=== PATIENT | female | born 1955 | race African-American/Black ===

== ENCOUNTER 2018-01-20 19:02 | Inpatient (IN) | payer OTHER ==
[~2018-01-20] VITALS: Ht 160 cm; Wt 102.5 kg
[~2018-01-20 19:02] MED LIST: CARV25TA PO; COLC0.6C3 PO; DOCU-141 PO; FURO-144 PO; GLIP5TAB13 PO; ISOS30TA PO; PANT40TA2 PO; SIME80TA PO; VALS80TA31 PO
--- NOTE | 2018-01-20 19:19 | NUR ---
URINE SAMPLE COLLECTED AND SENT TO LAB.
--- NOTE | 2018-01-20 19:20 | NUR ---
TO BED 9 BIB DAUGHTER C/O INTERMITTENT CHEST PAIN WITH SOB, ABDOMINAL DISTENSION SINCE YESTERDAY. PT STATES "IT FEEL LIKE THERE A BAND IN MY ABDOMEN. LUNG SOUNDS DEMINISHED BILATERALLY ON AUSCULTATION. RA O2 SAT 100%. SKIN WARM, NONDIAPHORETIC. ER MD AT BEDSIDE TO EVAL PTW ITH ORDERS RECEIVED. WILL CARRY OUT ORDERS. RT PAGED TO PLACE PT ON CPAP.
--- NOTE | 2018-01-20 19:24 | NUR ---
RT AT BESIDE PLACE PT ON CPAP RATE-5, FIO2-30%. WILL CONTINUE TO MONITOR PT CLOSELY.
--- NOTE | 2018-01-20 19:25 | NUR ---
STARTED SL 18G TO R HAND, BLOOD DRAWN AND SENT TO LAB.
[2018-01-20] MEDS ORDERED: ASPIRIN 325 MG TABLET PO ONE (19:30)
[2018-01-20] MEDS ORDERED: NITROGLYCERIN PACKET 1 GM PACKET TD ONE (19:30)
[2018-01-20 19:35] LABS: BASOPHILS # (AUTO) 0.2 /CMM (0.0-0.2); BASOPHILS % (AUTO) 2.9 % (0.0-2.0); EOSINOPHILS % (AUTO) 2.6 % (0.0-6.0); HEMATOCRIT 40 % (33-45); HEMOGLOBIN 13.1 g/dL (11.5-14.8); LYMPHOCYTES # (AUTO) 1.3 /CMM (0.8-4.8); LYMPHOCYTES % (AUTO) 23.3 % (20.0-44.0); MEAN CORPUSCULAR HEMOGLOBIN 28 PG (26.0-33.0); MEAN CORPUSCULAR HGB CONC 33 g/dl (31.0-36.0); MEAN CORPUSCULAR VOLUME 84 fL (82-100); MONOCYTES # (AUTO) 0.3 /CMM (0.1-1.30); MONOCYTES % (AUTO) 5.9 % (2.0-12.0); NEUTROPHILS # (AUTO) 3.6 /CMM (1.8-8.9); NEUTROPHILS % (AUTO) 65.3 % (43.0-81.0); PLATELET COUNT (AUTO) 221 /CMM (150-450); RED BLOOD CELL COUNT(AUTO) 4.77 MIL/uL (4.0-5.2); WHITE BLOOD COUNT (AUTO) 5.5 K/uL (4.3-11.0)
[2018-01-20] MEDS ORDERED: NITROGLYCERIN PACKET 1 GM PACKET ONE (19:39)
[2018-01-20] MEDS ORDERED: ASPIRIN 325 MG TABLET ONE (19:39)
[2018-01-20 19:42] VITALS: BP 146/90
--- NOTE | 2018-01-20 19:44 | NUR ---
CXR DONE. PT MEDICATED ORDERED. PT TOLERATING CURRENT CPAP SETTINGS AT THIS TIME. WILL CONTINUE TO MONITOR PT CLOSELY.
[2018-01-20 20:10] LABS: CALCIUM, SERUM 9.7 mg/dL (8.5-10.1); CARBON DIOXIDE 30 mmol/L (21-32); CHLORIDE 104 mmol/L (98-107); CREATININE 1.7 mg/dL (0.6-1.3); GLUCOSE 173 mg/dL (74-106); POTASSIUM 4.1 mmol/L (3.5-5.1); SODIUM SERUM 139 mmol/L (136-145); UREA NITROGEN, BLOOD 31 mg/dL (7-18)
[2018-01-20 20:11] LABS: B-TYPE NATRIURETIC PEPTIDE 7987 PG/ML (0-125)
[2018-01-20 20:21] LABS: INR 1.16 (0.85-1.15)
[2018-01-20 20:29] LABS: TROPONIN I < 0.017 ng/mL (0.00-0.056)
[2018-01-20] MEDS ORDERED: FUROSEMIDE 40 MG/4 ML VIAL IV ONE (21:00)
[2018-01-20] MEDS ORDERED: FUROSEMIDE 40 MG/4 ML VIAL ONE (21:10)
--- NOTE | 2018-01-20 21:13 | NUR ---
PLACE PT ON O2@2L/NC. CPAP DC'D [ER ER ORDER. WILL CONTINUE TO MONITOR PT CLOSELY.
--- NOTE | 2018-01-20 21:53 | NUR ---
REPORT CALLED TO TELE 1 CINDI PAVON. PENDING HOSPITAL ADMISSION.
--- NOTE | 2018-01-20 21:54 | NUR ---
PAGED DR. DENNY THROUGH [facility] OIL TRUCK DRIVER NATALYA
--- NOTE | 2018-01-20 22:08 | NUR ---
PAGED DR. DENNY FOR ADMIT
--- NOTE | 2018-01-20 22:09 | NUR ---
ER TALKING TO DR. DENNY REGARDING PT ADMISSION.
--- NOTE | 2018-01-20 23:00 | NUR ---
SPRING ASSEMBLER SUPERVISOR NOTE PATIENT IS AOX3, SPEECH CLEAR, ON 2L O2 VIA NC, DENIES ANY CARDIAC OR RESPIRATORY DISTRESS, DENIES CHEST PAIN, ABDOMEN DISTENDED, ON TELE SR, PT IS AMBULATORY WITH WALKER, BLE EDEMA, RIGHT HAND #18G PATENT FLUSHING WELL, SITE CDI, SAFETY MAINTAINED AT ALL TIMES, BED IN LOW LOCKED POSITION, EDUCATED PRINTED CIRCUIT BOARD PCB DRAFTSMAN LIGHT USE, WITHIN REACH, WILL CONTINUE TO MONITOR FOR ANY CHANGES IN CONDITION.
[2018-01-20 23:10] VITALS: BP 145/89
[2018-01-20] MEDS ORDERED: *INSULIN REGULAR(HUMULIN R)HUM 100 UNIT/ML VIAL SQ PRN (23:30)
[2018-01-20] MEDS ORDERED: INSULIN REGULAR, HUMAN 100 UNIT/ML 3 ML VIAL SQ PRN (23:30)
[2018-01-20] MEDS ORDERED: ZOLPIDEM TARTRATE 10 MG TABLET PO PRN (23:30)
[2018-01-20] MEDS ORDERED: DEXTROSE 50%-WATER 50 ML DISP.SYRIN IV PRN (23:30)
[2018-01-20] MEDS: ACETAMINOPHEN 325 MG TABLET PO PRN (23:53)
[2018-01-21] VITALS (7 sets, daily range): BP systolic 106–145; BP diastolic 64–91
[2018-01-21] MEDS ORDERED: ENOXAPARIN SODIUM 40 MG/0.4 ML DISP.SYRIN SQ ONE
--- NOTE | 2018-01-21 04:19 | NUR ---
INVESTIGATOR CASH SHORTAGE NOTE DR DENNY INFORMED THAT PATIENT HAD TWO EPISODES OF VTACH ONE LASTING 7 BEATS AND ANOTHER LASTING 6 BEATS, WITH NO NEW ORDERS, PT RESTING COMFORTABLY IN BED, 2L O2 VIA NC, V/S STABLE, DENIES ANY CARDIAC DISTRESS, WILL CONTINUE TO MONITOR.
[2018-01-21 07:33] LABS: BASOPHILS % (AUTO) 0.4 % (0.0-2.0); EOSINOPHILS % (AUTO) 3.6 % (0.0-6.0); HEMATOCRIT 37 % (33-45); HEMOGLOBIN 11.7 g/dL (11.5-14.8); LYMPHOCYTES # (AUTO) 1.3 /CMM (0.8-4.8); LYMPHOCYTES % (AUTO) 24.9 % (20.0-44.0); MEAN CORPUSCULAR HEMOGLOBIN 28 PG (26.0-33.0); MEAN CORPUSCULAR HGB CONC 32 g/dl (31.0-36.0); MEAN CORPUSCULAR VOLUME 88 fL (82-100); MONOCYTES # (AUTO) 0.6 /CMM (0.1-1.30); MONOCYTES % (AUTO) 11.2 % (2.0-12.0); NEUTROPHILS % (AUTO) 59.9 % (43.0-81.0); PLATELET COUNT (AUTO) 189 /CMM (150-450); RDW COEFFICIENT OF VARIATION 16.3 (11.5-15.0); RED BLOOD CELL COUNT(AUTO) 4.17 MIL/uL (4.0-5.2); WHITE BLOOD COUNT (AUTO) 5.1 K/uL (4.3-11.0)
[2018-01-21 07:41] LABS: CREATININE 1.6 mg/dL (0.6-1.3); POTASSIUM 3.5 mmol/L (3.5-5.1)
[2018-01-21 07:47] LABS: CALCIUM, SERUM 9.5 mg/dL (8.5-10.1)
[2018-01-21] MEDS ORDERED: COLCHICINE 0.6 MG TABLET PO PRN (08:00)
[2018-01-21] MEDS: BLOOD SUGAR DIAGNOSTIC 1 EACH STRIP VI SCH ×4 (08:00→21:49)
[2018-01-21] MEDS ORDERED: SIMETHICONE 80 MG TAB.CHEW PO PRN (08:00)
--- NOTE | 2018-01-21 08:00 | NUR ---
CHERIE RN NOTE RECEIVED PATIENT IN BED.PATIENT IS AOX4, SPEECH CLEAR, ON 2L O2 VIA NC, PATIENT COMPLAINS OF SOB WHEN LAYING ON HER BACK, DENIES ANY RESPIRATORY DISTRESS, DENIES CHEST PAIN AT THIS TIME, ABDOMEN DISTENDED, ON TELE SR WITH BBB, PT IS AMBULATORY WITH WALKER, BLE EDEMA, RIGHT HAND #18G IV LINE IS PATENT FLUSHING WELL, SITE CDI, SAFETY MAINTAINED AT ALL TIMES, BED IN LOW LOCKED POSITION, EDUCATED ELECTRONIC SALES AND SERVICE TECHNICIAN LIGHT USE PROVIDED, WITHIN REACH, WILL CONTINUE TO MONITOR FOR ANY CHANGES IN CONDITION.
[2018-01-21] MEDS ORDERED: FUROSEMIDE 40 MG TABLET PO SCH (09:00)
[2018-01-21] MEDS ORDERED: PANTOPRAZOLE 40 MG TABLET.DR PO SCH (09:00)
[2018-01-21] MEDS ORDERED: FUROSEMIDE 40 MG/4 ML VIAL IV SCH (09:00)
[2018-01-21] MEDS: DOCUSATE SODIUM 100 MG CAPSULE PO SCH (09:52)
[2018-01-21] MEDS: ACETAMINOPHEN 325 MG TABLET PO PRN (09:53)
[2018-01-21] MEDS: glipiZIDE 5 MG TABLET PO SCH (09:53)
[2018-01-21] MEDS: VALSARTAN 80 MG TABLET PO SCH (09:57)
[2018-01-21] MEDS: CARVEDILOL 12.5 MG TABLET PO SCH ×2 (09:57→21:49)
[2018-01-21] MEDS: ISOSORBIDE MONONITRATE (30MG) 30 MG TAB.SR.24H PO SCH (09:58)
[2018-01-21] MEDS: SPIRONOLACTONE 25 MG TABLET PO SCH (11:07)
--- NOTE | 2018-01-21 11:07 | NUR ---
INITIAL ECHO SHOWED EF~15% W/ MOD-SEVERE MR, SEVERE TR WITH MOD PULM HTN. INFORMED CHARGE NURSE (TOMER) AND DR. HEAD OF PRELIMINARY RESULTS
[2018-01-21] MEDS: FUROSEMIDE 40 MG/4 ML VIAL IV SCH (17:39)
--- NOTE | 2018-01-21 19:00 | NUR ---
CHERIE RN NOTES RECEIVED PATIENT IN BED.PATIENT IS A/OX4, SPEECH CLEAR, ON 2L O2 VIA NC, NO COMPLAIN OF PAIN , DENIES ANY RESPIRATORY DISTRESS AT THIS TIME , DENIES CHEST PAIN AT THIS TIME, ABDOMEN DISTENDED, ON TELE SR WITH BBB, PT IS AMBULATORY WITH WALKER, BLE EDEMA, RIGHT HAND #18G IV LINE IS PATENT FLUSHING WELL, SITE CDI, SAFETY MAINTAINED AT ALL TIMES, BED IN LOW LOCKED POSITION, EDUCATED VICE PRESIDENT BIOSTATISTICS LIGHT USE PROVIDED, WITHIN REACH,PATIENT CARE WILL BE ENDORSED TO PM NURSE FOR SENIOR SUPPORT ENGINEER .
--- NOTE | 2018-01-21 19:20 | NUR ---
HISTOLOGY SUPERVISOR NOTE PATIENT IS AOX3, SPEECH CLEAR, ON ROOM AIR, DENIES ANY CARDIAC OR RESPIRATORY DISTRESS, NO CHEST PAIN, ABDOMEN DISTENDED, ON TELE SR WITH BBB, PT IS AMBULATORY WITH WALKER, BRP, BLE EDEMA, RIGHT HAND #18G SL PATENT FLUSHING WELL, SITE CDI, SKIN KEPT CLEAN AND DRY, SAFETY MAINTAINED AT ALL TIMES, BED IN LOW LOCKED POSITION, CALL LIGHT WITHIN REACH, WILL CONTINUE TO MONITOR FOR ANY CHANGES IN CONDITION.
[2018-01-21] MEDS: PANTOPRAZOLE 40 MG TABLET.DR PO SCH (21:48)
[2018-01-21] MEDS ORDERED: ENOXAPARIN SODIUM 40 MG/0.4 ML DISP.SYRIN SQ SCH (22:00)
[2018-01-22] VITALS: BP 126/70
[2018-01-22] MEDS: FUROSEMIDE 40 MG/4 ML VIAL IV SCH ×3 (00:16→16:21)
[2018-01-22] MEDS: ACETAMINOPHEN 325 MG TABLET PO PRN (01:14)
[2018-01-22 04:00] VITALS: BP 135/79
[2018-01-22 06:26] LABS: BASOPHILS % (AUTO) 0.1 % (0.0-2.0); EOSINOPHILS % (AUTO) 3.1 % (0.0-6.0); HEMATOCRIT 37 % (33-45); HEMOGLOBIN 11.9 g/dL (11.5-14.8); LYMPHOCYTES # (AUTO) 1.1 /CMM (0.8-4.8); LYMPHOCYTES % (AUTO) 21.3 % (20.0-44.0); MEAN CORPUSCULAR HEMOGLOBIN 28 PG (26.0-33.0); MEAN CORPUSCULAR HGB CONC 32 g/dl (31.0-36.0); MEAN CORPUSCULAR VOLUME 88 fL (82-100); MONOCYTES # (AUTO) 0.4 /CMM (0.1-1.30); MONOCYTES % (AUTO) 7.8 % (2.0-12.0); NEUTROPHILS # (AUTO) 3.5 /CMM (1.8-8.9); NEUTROPHILS % (AUTO) 67.7 % (43.0-81.0); PLATELET COUNT (AUTO) 188 /CMM (150-450); RDW COEFFICIENT OF VARIATION 16.6 (11.5-15.0); RED BLOOD CELL COUNT(AUTO) 4.23 MIL/uL (4.0-5.2); WHITE BLOOD COUNT (AUTO) 5.2 K/uL (4.3-11.0)
[2018-01-22 06:38] LABS: CALCIUM, SERUM 9.2 mg/dL (8.5-10.1); CREATININE 1.7 mg/dL (0.6-1.3); POTASSIUM 3.8 mmol/L (3.5-5.1)
--- NOTE | 2018-01-22 07:45 | NUR ---
COMMISSARY AGENT NOTE: RECEIVED PATIENT IN BED, AWAKE, ALERT AND ABLE TO MAKE HER NEEDS KNOWN. RESPIRATION IS EVEN AND UNLABORED SATURATING 97% IN ROOM AIR. DENIED ANY PAIN. HOB ELEVATED. AFEBRILE. BED LOCKED AT ALL TIMES. (L) HAND IV SITE NOTED PATENT AND INTACT. CALL LIGHT WITHIN REACH. ON MEN'S BASKETBALL COACH, SR HR= 70. NEEDS ANTICIPATED.
[2018-01-22] MEDS: BLOOD SUGAR DIAGNOSTIC 1 EACH STRIP VI SCH ×3 (07:52→17:09)
[2018-01-22 08:00] VITALS: BP 136/92
[2018-01-22] MEDS: PANTOPRAZOLE 40 MG TABLET.DR PO SCH (08:46)
[2018-01-22] MEDS: VALSARTAN 80 MG TABLET PO SCH (08:46)
[2018-01-22] MEDS: glipiZIDE 5 MG TABLET PO SCH (08:46)
[2018-01-22] MEDS: SPIRONOLACTONE 25 MG TABLET PO SCH (08:47)
[2018-01-22] MEDS: DOCUSATE SODIUM 100 MG CAPSULE PO SCH (08:47)
[2018-01-22] MEDS: ISOSORBIDE MONONITRATE (30MG) 30 MG TAB.SR.24H PO SCH (08:48)
[2018-01-22] MEDS: CARVEDILOL 12.5 MG TABLET PO SCH (08:48)
[2018-01-22] MEDS ORDERED: SPIR25TA PO (09:33)
[2018-01-22] MEDS ORDERED: VALS80TA31 PO (09:33)
[2018-01-22 16:00] VITALS: BP 110/68
--- NOTE | 2018-01-22 19:00 | NUR ---
MS RN NOTE: PATIENT WAS GIVEN DISCHARGE INSTRUCTIONS AND EXIT CARE WAS DONE. PATIENT RECEIVED THE DISCHARGE PACKET WITH HER INCLUDING THE PRESCRIPTION FROM DR. DENNY. PATIENT HAD NO QUESTIONS REGARDING HER DISCHARGE FOR TONIGHT. BELONGING LIST WAS SIGNED. MARITZA, DAUGHTER IS ON THE WAY TO PICK-UP THE PATIENT.
--- NOTE | 2018-01-22 19:30 | NUR ---
MS RN NOTE: PATIENT WAS DISCHARGED TO HOME AND WAS PICKED-UP BY HER DAUGHTER, MARITZA VIA PRIVATE CAR. PATIENT BROUGHT ALL HER BELONGINGS AND IV LINE ON THE (L) HAND WAS REMOVED. COVERED WITH DRY DRESSING AND SECURED WITH TAPE. PATIENT WAS ESCORTED TO THE MAIN LOBBY VIA WHEELCHAIR ACCOMPANIED BY A LICENSED NURSE.
[2018-01-23] MEDS ORDERED: VALSARTAN 80 MG TABLET PO SCH (09:00)
== END 2018-01-22 19:35 | disposition home or self-care (01) | DRG 194 ==
LOC: ER 19:03 → TELE-TD 22:19 → TELE1 23:18 → MEDSG1 01-22 09:29
PROVIDERS: ADMIT Internal Medicine; ATTEND Internal Medicine
DX: I11.0 Hypertensive heart disease with heart failure (principal); E11.22 Type 2 diabetes mellitus with diabetic chronic kidney disease; I42.0 Dilated cardiomyopathy; I08.1 Rheumatic disorders of both mitral and tricuspid valves; E78.5 Hyperlipidemia, unspecified; L40.9 Psoriasis, unspecified; Z98.890 Other specified postprocedural states; Z79.84 Long term (current) use of oral hypoglycemic drugs; Z79.899 Other long term (current) drug therapy; K59.00 Constipation, unspecified; M10.9 Gout, unspecified; F31.9 Bipolar disorder, unspecified; I50.23 Acute on chronic systolic (congestive) heart failure; I13.0 Hypertensive heart and chronic kidney disease with heart failure and stage 1 through stage 4 chronic kidney disease, or unspecified chronic kidney disease; K80.20 Calculus of gallbladder without cholecystitis without obstruction; N18.3 Chronic kidney disease, stage 3 (moderate); Z95.810 Presence of automatic (implantable) cardiac defibrillator; I27.20 Pulmonary hypertension, unspecified; D21.9 Benign neoplasm of connective and other soft tissue, unspecified
CPT/HCPCS: 36415; 71045-TC; 80048-TC; 82962-TC; 83880; 84484-TC; 85025-TC; 85730-TC; 87081-TC; 93307-TC; A4606; J1650; J1815; J1940; Z7610

== ENCOUNTER 2019-02-17 15:56 | Emergency (ER) | payer OTHER ==
[~2019-02-17] VITALS: Ht 154.9 cm; Wt 109.3 kg
[~2019-02-17 15:56] MED LIST changes: +SPIR25TA PO
--- NOTE | 2019-02-17 15:58 | NUR ---
[id number], FROM HOME, C/O SOB x 3 DAYS Hx CHF, TO ER BED 9, HOOKED TO MONITOR, CHANGED TO GOWN, PROVIDED W WARM BLANKET, AWAITING MD MCGUIRE. Addendum: 02/17/19 at 1857 by LAURI [id number], FROM HOME, C/O SOB x 3 DAYS Hx CHF, TO ER BED 9, HOOKED TO MONITOR, CHANGED TO GOWN, PROVIDED W WARM BLANKET, PATIENT AOx3, ON 2LPM O2 VIA NC AT 97% O2 SATURATION, HOB KEPT ELEVATED, AWAITING MD MCGUIRE.
--- NOTE | 2019-02-17 16:02 | NUR ---
DR LOPEZ AT BEDSIDE
--- NOTE | 2019-02-17 16:11 | NUR ---
GAVE MOVESHEET TO ADMITTING
[2019-02-17] MEDS ORDERED: ASPI-1152 PO (16:14)
[2019-02-17] MEDS ORDERED: METO2.5T2 PO (16:14)
[2019-02-17] MEDS ORDERED: BISA5TAB10 PO (16:14)
[2019-02-17] MEDS ORDERED: FURO-144 PO (16:14)
[2019-02-17] MEDS ORDERED: VALS80TA2 PO (16:14)
[2019-02-17] MEDS ORDERED: ERGO500014 PO (16:14)
[2019-02-17] MEDS ORDERED: FURO-145 PO (16:14)
[2019-02-17] MEDS ORDERED: CLON0.3P TD (16:14)
[2019-02-17] MEDS ORDERED: EMPA10TA PO (16:14)
[2019-02-17] MEDS ORDERED: ATOR10TA PO (16:14)
[2019-02-17] MEDS ORDERED: SPIR25TA PO (16:15)
[2019-02-17] MEDS ORDERED: FUROSEMIDE 40 MG/4 ML VIAL ONE (16:21)
[2019-02-17 16:28] LABS: BASOPHILS # (AUTO) 0.1 /CMM (0.0-0.2); BASOPHILS % (AUTO) 1.7 % (0.0-2.0); EOSINOPHILS % (AUTO) 1.2 % (0.0-6.0); HEMATOCRIT 44 % (33-45); HEMOGLOBIN 14.2 g/dL (11.5-14.8); MEAN CORPUSCULAR HGB CONC 32 g/dl (31.0-36.0); MEAN CORPUSCULAR VOLUME 92 fL (82-100); MONOCYTES # (AUTO) 0.6 /CMM (0.1-1.30); MONOCYTES % (AUTO) 9.5 % (2.0-12.0); NEUTROPHILS # (AUTO) 4.3 /CMM (1.8-8.9); NEUTROPHILS % (AUTO) 70.6 % (43.0-81.0); PLATELET COUNT (AUTO) 207 /CMM (150-450); RED BLOOD CELL COUNT(AUTO) 4.77 MIL/uL (4.0-5.2); WHITE BLOOD COUNT (AUTO) 6.1 K/uL (4.3-11.0)
[2019-02-17] MEDS ORDERED: FUROSEMIDE 40 MG/4 ML VIAL IV ONE (16:30)
[2019-02-17 16:34] LABS: CALCIUM, SERUM 9.5 mg/dL (8.5-10.1); CARBON DIOXIDE 23 mmol/L (21-32); CHLORIDE 106 mmol/L (98-107); CREATININE 1.8 mg/dL (0.6-1.3); GLUCOSE 142 mg/dL (74-106); POTASSIUM 4.5 mmol/L (3.5-5.1); SODIUM SERUM 141 mmol/L (136-145); UREA NITROGEN, BLOOD 36 mg/dL (7-18)
[2019-02-17 16:46] LABS: ALANINE AMINOTRANSFERASE 13 U/L (12-78); ALBUMIN 3.2 g/dL (3.4-5.0); ALKALINE PHOSPHATASE 134 U/L (46-116); ASPARTATE AMINOTRANSFERASE 15 U/L (15-37); B-TYPE NATRIURETIC PEPTIDE 7272 PG/ML (0-125); BILIRUBIN,DIRECT 0.4 mg/dL (0.0-0.2); TOTAL PROTEIN, SERUM 7.8 g/dL (6.4-8.2)
--- NOTE | 2019-02-17 17:24 | NUR ---
LUIS- DAUGHTER REQUESTS UPDATE OF TRANSFER INFO WHEN AVAILABLE Addendum: 02/17/19 at 1725 by KIM LUIS [phone]
--- NOTE | 2019-02-17 17:35 | NUR ---
PER SUPA CLOCK AND WATCH HANDS MOUNTER TJ [phone] PT WILL GO TO [facility], TRANSPORT INFO AND ROOM ASSIGNMENT PENDING
--- NOTE | 2019-02-17 18:18 | NUR ---
CALL FROM SUPA SPENCER MGR, ACCEPTED BY DR ARCHULETA AT [facility].. REPORT TO BE CALLED AFTER SHIFT CHANGE AT [phone], [facility] ETA 90 MINUTES
--- NOTE | 2019-02-17 19:20 | NUR ---
REPORT GIVEN TO BRENDA PUENTE FOR [facility]
--- NOTE | 2019-02-17 19:45 | NUR ---
REPORT GIVEN TO CINDI OLSEN AT [facility] FOR [facility]
--- NOTE | 2019-02-17 22:20 | NUR ---
[facility] ETA 10 MINUTES
[2019-02-17 22:59] VITALS: BP 124/96
== END 2019-02-17 23:14 | disposition short-term general hospital (02) ==
LOC: ER 16:02
DX: I11.0 Hypertensive heart disease with heart failure (principal); I50.9 Heart failure, unspecified; J45.909 Unspecified asthma, uncomplicated; E11.9 Type 2 diabetes mellitus without complications; L40.9 Psoriasis, unspecified; R06.00 Dyspnea, unspecified; E66.9 Obesity, unspecified; Z68.42 Body mass index [BMI] 45.0-49.9, adult; Z95.0 Presence of cardiac pacemaker; Z98.890 Other specified postprocedural states; Z98.51 Tubal ligation status; Z79.82 Long term (current) use of aspirin
CPT/HCPCS: 36415; 51702; 71045; 80048; 80076; 83605; 83880; 84484; 85025; 85730; 87040 ×2; 87081; 93005; 96374; 99285; J1940

== ENCOUNTER 2019-03-28 22:55 | Emergency (ER) | payer OTHER ==
[~2019-03-28] VITALS: Ht 154.9 cm; Wt 98.9 kg
[~2019-03-28 22:55] MED LIST changes: +ASPI-1152 PO; +ATOR10TA PO; +BISA5TAB10 PO; +CLON0.3P TD; -COLC0.6C3 PO; -DOCU-141 PO; +EMPA10TA PO; +ERGO500014 PO; +FURO-145 PO; -GLIP5TAB13 PO; +METO2.5T2 PO; +VALS80TA2 PO; -VALS80TA31 PO
[2019-03-28 23:23] LABS: BASOPHILS # (AUTO) 0.1 /CMM (0.0-0.2); BASOPHILS % (AUTO) 1.5 % (0.0-2.0); EOSINOPHILS % (AUTO) 4.6 % (0.0-6.0); HEMATOCRIT 44 % (33-45); HEMOGLOBIN 14.3 g/dL (11.5-14.8); LYMPHOCYTES # (AUTO) 1.2 /CMM (0.8-4.8); LYMPHOCYTES % (AUTO) 20.6 % (20.0-44.0); MEAN CORPUSCULAR HGB CONC 33 g/dl (31.0-36.0); MEAN CORPUSCULAR VOLUME 91 fL (82-100); MONOCYTES # (AUTO) 0.7 /CMM (0.1-1.30); MONOCYTES % (AUTO) 12.7 % (2.0-12.0); NEUTROPHILS # (AUTO) 3.4 /CMM (1.8-8.9); NEUTROPHILS % (AUTO) 60.6 % (43.0-81.0); PLATELET COUNT (AUTO) 161 /CMM (150-450); RED BLOOD CELL COUNT(AUTO) 4.77 MIL/uL (4.0-5.2); WHITE BLOOD COUNT (AUTO) 5.7 K/uL (4.3-11.0)
[2019-03-28 23:33] LABS: CALCIUM, SERUM 9.4 mg/dL (8.5-10.1); CARBON DIOXIDE 27 mmol/L (21-32); CHLORIDE 103 mmol/L (98-107); CREATININE 1.8 mg/dL (0.6-1.3); GLUCOSE 160 mg/dL (74-106); POTASSIUM 4.4 mmol/L (3.5-5.1); SODIUM SERUM 139 mmol/L (136-145); UREA NITROGEN, BLOOD 34 mg/dL (7-18)
--- NOTE | 2019-03-28 23:37 | NUR ---
HORTENCIA FROM HOME TO ER BED 9. AAOX4. C/O SOB FOR THE PAST FEW DAYS WORST TODAY. PT REPORTS THAT SHE HAVE ASCITES AND ITS PUSHING UP ON HER DIAPHRAM AND HAVING HARD TIME BREATHING. NOTED ABDOMINAL DISTENSION. MD AT BEDSIDE FOR EVAL. ORDER RECEIVED NOTED, AND CARRIED OUT. IV LINE OBTAINED ON R HAND 20G. BLOOD DRAWN AND GIVEN TO ASH COLLECTOR AT BEDSIDE. WILL CONTINUE TO MONITOR PT
--- NOTE | 2019-03-28 23:41 | NUR ---
XRAY AT BEDSIDE
[2019-03-28 23:46] LABS: ALANINE AMINOTRANSFERASE 17 U/L (12-78); ALBUMIN 3.5 g/dL (3.4-5.0); ALKALINE PHOSPHATASE 179 U/L (46-116); ASPARTATE AMINOTRANSFERASE 21 U/L (15-37); B-TYPE NATRIURETIC PEPTIDE 7630 PG/ML (0-125); BILIRUBIN,DIRECT 0.4 mg/dL (0.0-0.2); BILIRUBIN,TOTAL 0.9 mg/dL (0.2-1.0); TOTAL PROTEIN, SERUM 8.7 g/dL (6.4-8.2)
[2019-03-29] MEDS ORDERED: FUROSEMIDE 40 MG/4 ML VIAL ONE (00:23)
--- NOTE | 2019-03-29 00:23 | NUR ---
PT ACCEPTED TO [facility]. AWAITING TRANSFER INFORMATION.
[2019-03-29] MEDS ORDERED: FUROSEMIDE 40 MG/4 ML VIAL IV ONE (00:30)
--- NOTE | 2019-03-29 01:37 | NUR ---
[facility]: [phone]. NURSE PRAVEENA ROOM [id number]
--- NOTE | 2019-03-29 01:51 | NUR ---
REPORT GIVEN TO CINDI GRISSOM FOR [facility] AT THE [facility]
[2019-03-29 02:41] VITALS: BP 131/92
--- NOTE | 2019-03-29 02:41 | NUR ---
[facility] ambulance at bedside for pt transport to [facility]. report given. pt is stable for transport
== END 2019-03-29 02:44 | disposition short-term general hospital (02) ==
LOC: ER 22:56
DX: I11.0 Hypertensive heart disease with heart failure (principal); I50.9 Heart failure, unspecified; E11.9 Type 2 diabetes mellitus without complications; J45.909 Unspecified asthma, uncomplicated; I25.10 Atherosclerotic heart disease of native coronary artery without angina pectoris; Z98.890 Other specified postprocedural states; Z95.0 Presence of cardiac pacemaker; Z79.899 Other long term (current) drug therapy; Z79.82 Long term (current) use of aspirin
CPT/HCPCS: 36415; 71045; 80048; 80076; 83880; 84484; 85025; 85730; 87081; 93005; 96374; 99285; J1940

== ENCOUNTER 2020-02-15 10:13 | Emergency (ER) | payer MEDICAID, OTHER ==
[~2020-02-15] VITALS: Ht 154.9 cm; Wt 97.5 kg
[~2020-02-15 10:13] MED LIST changes: -ASPI-1152 PO; +ASPI-1420 PO
[2020-02-15] MEDS ORDERED: IV NS 0.9% 1,000 ML BAG IV ONE (10:30)
--- NOTE | 2020-02-15 10:30 | NUR ---
[id number], C/O GENERALIZED WEAKNESS SINCE THIS AM. PATIENT A/OX4, BREATHING EVEN AND UNLABORED, NO SOB NOTED, NEEDS ATTENDED, CHANGED INTO GOWN, ATTACHED TO THE REHABILITATION TEACHER.
--- NOTE | 2020-02-15 10:40 | NUR ---
IV LINE ESTABLISHED ON RIGHT HAND G20 IV, BLOOD DRAWN AND SENT TO LAB.
[2020-02-15 10:48] LABS: BASOPHILS # (AUTO) 0.1 /CMM (0.0-0.2); BASOPHILS % (AUTO) 1.1 % (0.0-2.0); EOSINOPHILS % (AUTO) 1.6 % (0.0-6.0); HEMATOCRIT 44 % (33-45); HEMOGLOBIN 14.4 g/dL (11.5-14.8); LYMPHOCYTES # (AUTO) 1.2 /CMM (0.8-4.8); LYMPHOCYTES % (AUTO) 21.6 % (20.0-44.0); MEAN CORPUSCULAR HGB CONC 32 g/dl (31.0-36.0); MEAN CORPUSCULAR VOLUME 92 fL (82-100); MONOCYTES # (AUTO) 0.5 /CMM (0.1-1.30); MONOCYTES % (AUTO) 8.7 % (2.0-12.0); NEUTROPHILS # (AUTO) 3.7 /CMM (1.8-8.9); PLATELET COUNT (AUTO) 172 /CMM (150-450); RED BLOOD CELL COUNT(AUTO) 4.85 MIL/uL (4.0-5.2); WHITE BLOOD COUNT (AUTO) 5.5 K/uL (4.3-11.0)
[2020-02-15 10:54] LABS: CALCIUM, SERUM 9.6 mg/dL (8.5-10.1); CARBON DIOXIDE 30 mmol/L (21-32); CHLORIDE 100 mmol/L (98-107); CREATININE 2.2 mg/dL (0.6-1.3); GLUCOSE 195 mg/dL (74-106); POTASSIUM 3.9 mmol/L (3.5-5.1); SODIUM SERUM 139 mmol/L (136-145); UREA NITROGEN, BLOOD 65 mg/dL (7-18)
[2020-02-15] MEDS ORDERED: FUROSEMIDE 40 MG/4 ML VIAL IV ONE (12:00)
--- NOTE | 2020-02-15 12:13 | NUR ---
PT GOING TO [facility]. PLEASE CALL MIKO SEBASTIAN [phone] WITH COVID RESULT.
[2020-02-15] MEDS ORDERED: FUROSEMIDE 40 MG/4 ML VIAL ONE (12:18)
--- NOTE | 2020-02-15 12:33 | NUR ---
MEDICATED PER ERMD ORDER, PT ARETHA WELL.
--- NOTE | 2020-02-15 13:33 | NUR ---
PT SITTING UP, STS " I FEEL A LITTLE BETTER ". DENIES CP, SOB, DIZZINESS, N/V AT THIS TIME. WILL CONT TO MONITOR.
[2020-02-15] MEDS ORDERED: FAMOTIDINE/PF INJ 20 MG/2 ML VIAL IV ONE (13:48)
[2020-02-15] MEDS ORDERED: methylPREDNISolone SOD SUCC 125 MG/2ML VIAL ONE (13:48)
[2020-02-15] MEDS ORDERED: diphenhydrAMINE HCL 50 MG/ML VIAL ONE (13:48)
[2020-02-15 15:28] VITALS: BP 143/98
--- NOTE | 2020-02-15 15:30 | NUR ---
REPORT GIVEN TO CINDI CHAKRABORTY AT [facility] FOR [facility].
--- NOTE | 2020-02-15 16:06 | NUR ---
Arranged by CM, [facility] ambulance ETA 17:45
--- NOTE | 2020-02-15 18:50 | NUR ---
PT ENROUTE TO [facility] VIA ALS.
== END 2020-02-15 18:52 | disposition short-term general hospital (02) ==
LOC: ER 10:20
DX: I13.0 Hypertensive heart and chronic kidney disease with heart failure and stage 1 through stage 4 chronic kidney disease, or unspecified chronic kidney disease (principal); E11.22 Type 2 diabetes mellitus with diabetic chronic kidney disease; N18.9 Chronic kidney disease, unspecified; I50.9 Heart failure, unspecified; Z79.84 Long term (current) use of oral hypoglycemic drugs; Z79.899 Other long term (current) drug therapy; R55 Syncope and collapse; Z20.828 Contact with and (suspected) exposure to other viral communicable diseases; Z95.810 Presence of automatic (implantable) cardiac defibrillator; E78.5 Hyperlipidemia, unspecified; J44.9 Chronic obstructive pulmonary disease, unspecified; L40.9 Psoriasis, unspecified; Z83.3 Family history of diabetes mellitus; E66.9 Obesity, unspecified; Z68.41 Body mass index [BMI] 40.0-44.9, adult; I45.2 Bifascicular block
CPT/HCPCS: 36415; 71045; 80048; 82962; 83880; 84484; 85025; 85730; 87426; 93005; 96374; 99285; C9803; J1940; J1200; J2930; J3490

== ENCOUNTER 2022-03-08 15:24 | Emergency (ER) | payer MEDICARE, OTHER ==
[~2022-03-08] VITALS: Ht 154.9 cm; Wt 97.5 kg
--- NOTE | 2022-03-08 16:00 | NUR ---
BIB FAMILY, C/O LOWER ABDOMINAL PAIN/DISTENSION X 1 WEEK. PT STATED THAT PAIN IS 10/10, CONSISTENTLY. PT STATED THAT SHE HAS PAIN WHILE URINATING. ATTACHED TO MONITOR, VITALS ARE WITHIN NORMAL LIMITS. AWAITING MD ORDERS.
--- NOTE | 2022-03-08 16:42 | NUR ---
PT UNABLE TO PROVIDE URINE AT THIS TIME
--- NOTE | 2022-03-08 16:52 | NUR ---
IV ESTABLISHED R HAND 22G. UNABLE TO DRAW BLOOD, LAB AWARE.
[2022-03-08 17:46] LABS: BASOPHILS % (AUTO) 0.7 % (0.0-2.0); EOSINOPHILS % (AUTO) 3.1 % (0.0-6.0); HEMATOCRIT 37 % (33-45); HEMOGLOBIN 11.5 g/dL (11.5-14.8); LYMPHOCYTES # (AUTO) 0.7 K/uL (0.8-4.8); LYMPHOCYTES % (AUTO) 12.5 % (20.0-44.0); MEAN CORPUSCULAR HGB CONC 31 g/dl (31.0-36.0); MEAN CORPUSCULAR VOLUME 93 fL (82-100); MONOCYTES # (AUTO) 0.4 K/uL (0.1-1.30); MONOCYTES % (AUTO) 7.7 % (2.0-12.0); NEUTROPHILS # (AUTO) 4.2 K/uL (1.8-8.9); PLATELET COUNT (AUTO) 188 K/uL (150-450); RED BLOOD CELL COUNT(AUTO) 3.95 MIL/uL (4.0-5.2); WHITE BLOOD COUNT (AUTO) 5.6 K/uL (4.3-11.0)
--- NOTE | 2022-03-08 17:58 | NUR ---
PT UNABLE TO PROVIDE URINE, WILL ENCOURAGE AGAIN AT A LATER TIME.
[2022-03-08 18:00] LABS: CALCIUM, SERUM 9.5 mg/dL (8.5-10.1); CARBON DIOXIDE 31 mmol/L (21-32); CHLORIDE 108 mmol/L (98-107); GLUCOSE 136 mg/dL (74-106); POTASSIUM 4.3 mmol/L (3.5-5.1); SODIUM SERUM 145 mmol/L (136-145); UREA NITROGEN, BLOOD 41 mg/dL (7-18)
[2022-03-08 18:06] LABS: ALANINE AMINOTRANSFERASE 9 U/L (12-78); ALBUMIN 3.2 g/dL (3.4-5.0); ALKALINE PHOSPHATASE 131 U/L (46-116); ASPARTATE AMINOTRANSFERASE 13 U/L (15-37); BILIRUBIN,DIRECT 0.2 mg/dL (0.0-0.2); BILIRUBIN,TOTAL 0.5 mg/dL (0.2-1.0); LIPASE 84 U/L (73-393); TOTAL PROTEIN, SERUM 7.2 g/dL (6.4-8.2)
[2022-03-08] MEDS ORDERED: FURO-144 PO (18:54)
--- NOTE | 2022-03-08 19:10 | NUR ---
Patient discharged to home in stable condition. Written and verbal after care instructions given. Patient verbalizes understanding of instruction.IV removed. Catheter intact and site benign. Pressure and 4x4 applied to site. No bleeding noted.
[2022-03-08 19:12] VITALS: BP 112/69
== END 2022-03-08 19:13 | disposition home or self-care (01) ==
LOC: ER 15:35
DX: R18.8 Other ascites (principal); I11.0 Hypertensive heart disease with heart failure; I50.9 Heart failure, unspecified; E78.5 Hyperlipidemia, unspecified; J44.9 Chronic obstructive pulmonary disease, unspecified; E11.9 Type 2 diabetes mellitus without complications; Z98.890 Other specified postprocedural states; Z95.0 Presence of cardiac pacemaker; Z79.899 Other long term (current) drug therapy
CPT/HCPCS: 36415; 71045-TC; 80048-TC; 80076-TC; 83690-TC; 84484-TC; 85025-TC; 85730-TC

== ENCOUNTER 2022-05-11 15:11 | Inpatient (IN) | payer MEDICARE, OTHER ==
[~2022-05-11] VITALS: Ht 154.9 cm; Wt 84.4 kg
--- NOTE | 2022-05-11 15:20 | NUR ---
DR FARRIS AT BEDSIDE
[2022-05-11 16:25] LABS: BASOPHILS % (AUTO) 0.6 % (0.0-2.0); EOSINOPHILS % (AUTO) 0.8 % (0.0-6.0); HEMATOCRIT 39 % (33-45); LYMPHOCYTES # (AUTO) 0.8 K/uL (0.8-4.8); LYMPHOCYTES % (AUTO) 14.2 % (20.0-44.0); MEAN CORPUSCULAR HGB CONC 31 g/dl (31.0-36.0); MEAN CORPUSCULAR VOLUME 90 fL (82-100); MONOCYTES # (AUTO) 0.3 K/uL (0.1-1.30); MONOCYTES % (AUTO) 6.1 % (2.0-12.0); NEUTROPHILS # (AUTO) 4.2 K/uL (1.8-8.9); NEUTROPHILS % (AUTO) 78.3 % (43.0-81.0); PLATELET COUNT (AUTO) 176 K/uL (150-450); WHITE BLOOD COUNT (AUTO) 5.4 K/uL (4.3-11.0)
[2022-05-11 16:36] LABS: CALCIUM, SERUM 9.3 mg/dL (8.5-10.1); CREATININE 6.1 mg/dL (0.6-1.3)
[2022-05-11 16:42] LABS: ALBUMIN 3.4 g/dL (3.4-5.0); BILIRUBIN,DIRECT 0.4 mg/dL (0.0-0.2); BILIRUBIN,TOTAL 0.9 mg/dL (0.2-1.0)
[2022-05-11 16:47] LABS: POTASSIUM 7.9 mmol/L (3.5-5.1)
[2022-05-11] MEDS ORDERED: SODIUM POLYSTYRENE SULFONATE 15 G/60 ML BOTTLE ONE (16:57)
[2022-05-11] MEDS ORDERED: CALCIUM CHLORIDE 1,000 MG/10 ML DISP.SYRIN ONE (16:57)
[2022-05-11] MEDS ORDERED: SODIUM BICARBONATE SYR 50 MEQ/50 ML DISP.SYRIN ONE (16:57)
[2022-05-11] MEDS ORDERED: DEXTROSE 50%-WATER 50 ML DISP.SYRIN ONE (16:58)
[2022-05-11] MEDS ORDERED: INSULIN REGULAR, HUMAN 100 UNIT/ML 10 ML VIAL ONE (16:58)
[2022-05-11] MEDS ORDERED: DEXTROSE 50%-WATER 50 ML DISP.SYRIN IV ONE (17:00)
[2022-05-11] MEDS ORDERED: SODIUM BICARBONATE SYR 100 MEQ in IV D5W 1,000 ML IV ONE (17:00)
[2022-05-11] MEDS ORDERED: CALCIUM CHLORIDE 1,000 MG/10 ML DISP.SYRIN IV ONE (17:00)
[2022-05-11] MEDS ORDERED: SODIUM POLYSTYRENE SULFONATE 15 G/60 ML BOTTLE PO ONE (17:00)
[2022-05-11] MEDS ORDERED: INSULIN REGULAR, HUMAN 100 UNIT/ML 10 ML VIAL IV ONE (17:00)
[2022-05-11] MEDS ORDERED: ALBUTEROL FS 2.5 MG/3 ML VIAL.NEB NEB ONE (17:00)
[2022-05-11] MEDS ORDERED: SODIUM BICARBONATE SYR 50 MEQ/50 ML DISP.SYRIN IV ONE (17:00)
--- NOTE | 2022-05-11 17:10 | NUR ---
RAPID COVID SWAB DONE AND SENT TO LAB
[2022-05-11] MEDS ORDERED: INSU100V7 SQ (17:25)
[2022-05-11] MEDS ORDERED: SACU1TAB PO (17:25)
[2022-05-11] MEDS ORDERED: COLC0.6C PO (17:25)
[2022-05-11] MEDS ORDERED: ALLO300T2 PO (17:25)
[2022-05-11] MEDS ORDERED: INSU100V27 SQ (17:25)
[2022-05-11] MEDS ORDERED: ALBU2.5V13 IH (17:26)
[2022-05-11] MEDS ORDERED: ALBUTEROL FS 2.5 MG/3 ML VIAL.NEB ONE (17:45)
--- NOTE | 2022-05-11 17:52 | NUR ---
MOVE SHEET SUBMITTED.
--- NOTE | 2022-05-11 17:52 | NUR ---
ONGOING BREATHING TREATMENT
[2022-05-11] MEDS ORDERED: Sodium Bicarbonate 100 MEQ in IV D5W 1,000 ML IV ONE (18:00)
--- NOTE | 2022-05-11 19:24 | NUR ---
FERNIE LUCAS AT BEDSIDE
[2022-05-11] MEDS ORDERED: ALBUTEROL FS 2.5 MG/0.5 ML VIAL.NEB NEB PRN (19:30)
[2022-05-11] MEDS ORDERED: ACETAMINOPHEN 325 MG TABLET PO PRN (19:30)
[2022-05-11] MEDS ORDERED: IV NS 0.9% 1,000 ML IV PRN (19:30)
[2022-05-11] MEDS ORDERED: MAG HYDROX/AL HYDROX/SIMETH 30 ML UDC PO PRN (19:30)
[2022-05-11] MEDS ORDERED: Z GUARD REMEDY 4 OZ OINT TP PRN (19:30)
[2022-05-11] MEDS ORDERED: MAGNESIUM HYDROXIDE 30 ML UDC PO PRN (19:30)
[2022-05-11] MEDS ORDERED: ONDANSETRON HCL/PF 4 MG/2 ML VIAL IVP PRN (19:30)
[2022-05-11] MEDS ORDERED: SIMETHICONE 80 MG TAB.CHEW PO PRN (19:30)
--- NOTE | 2022-05-11 19:32 | NUR ---
FOUND PATIENT RESTING COMOFRTABLY IN BED ON MONITOR. V/S WNL. DENIES AND SOB/PAIN.
--- NOTE | 2022-05-11 19:51 | NUR ---
bed 254
[2022-05-11] MEDS ORDERED: CLONIDINE HCL 0.3 MG/24H PTWK 1 EA PATCH TD SCH (20:00)
--- NOTE | 2022-05-11 20:03 | NUR ---
PRELIMINARY ECHO SHOWED EF IS 15-20%~. ADVISED ER NURSE AND DR HEAD OF INITIAL FINDING.
--- NOTE | 2022-05-11 20:13 | NUR ---
REPORT TGIVEN TO JETT
--- NOTE | 2022-05-11 20:57 | NUR ---
US GUIDED IV ANDERS #20G S/L PATENT AND INTACT
[2022-05-11 20:58] LABS: ALBUMIN 3.5 g/dL (3.4-5.0); BILIRUBIN,TOTAL 0.8 mg/dL (0.2-1.0); CALCIUM, SERUM 10.3 mg/dL (8.5-10.1); CREATININE 6.1 mg/dL (0.6-1.3); TOTAL PROTEIN, SERUM 8.3 g/dL (6.4-8.2)
[2022-05-11 21:00] LABS: POTASSIUM 7.4 mmol/L (3.5-5.1)
--- NOTE | 2022-05-11 21:56 | NUR ---
PT TRANSPORTED TO ICU VIA GURNEY VIA ACLS PROTOCOL
[2022-05-11 22:00] VITALS: BP 103/60
[2022-05-11] MEDS ORDERED: BLOOD SUGAR DIAGNOSTIC 1 EACH STRIP IN PRN (22:00)
[2022-05-11] MEDS ORDERED: ATORVASTATIN 10 MG TABLET PO SCH (22:00)
[2022-05-11] MEDS ORDERED: ZOLPIDEM TARTRATE 5 MG TABLET PO PRN (22:00)
[2022-05-11 22:08] VITALS: BP 115/91
[2022-05-11 22:15] VITALS: BP 101/17
[2022-05-11 22:30] VITALS: BP 118/15
[2022-05-11 23:00] VITALS: BP 117/22
[2022-05-11] MEDS: INSULIN GLARGINE, 100 UNIT/ML CARTRIDGE SQ SCH (23:00)
[2022-05-11 23:04] VITALS: BP 117/22
--- NOTE | 2022-05-11 23:17 | NUR ---
RN NOTE 5075 ADMITTED PT WITH DIAGNOSIS OF SEVERE HYPERKALEMIA. PT CAME IN FOR ABDOMINAL PAIN AND SOB. PT AOX4. NOT IN ANY DISTRESS. 97% ON ROOM AIR. ABDOMEN DISTENDED. LAC IV #18 PATENT AND INTACT, NA BICARB IN D5W RUNNING AND 100ML/HR. PT CONTINENT TO BOWEL AND BLADDER, USES BEDPAN. NOTED WITH DISCOLORATION/REDNESS ON SACRAL. FSBS 91. HELD DUE LANTUS. CALL LIGHT WITHIN REACH. ALL SAFETY MEASURES IN PLACE. WILL CONTINUE TO MONITOR.
[2022-05-12] VITALS (27 sets, daily range): BP systolic 93–140; BP diastolic 24–84
[2022-05-12 04:29] LABS: BASOPHILS % (AUTO) 0.7 % (0.0-2.0); EOSINOPHILS % (AUTO) 1.3 % (0.0-6.0); HEMATOCRIT 35 % (33-45); HEMOGLOBIN 11.3 g/dL (11.5-14.8); LYMPHOCYTES # (AUTO) 0.8 K/uL (0.8-4.8); LYMPHOCYTES % (AUTO) 13.8 % (20.0-44.0); MEAN CORPUSCULAR HGB CONC 32 g/dl (31.0-36.0); MEAN CORPUSCULAR VOLUME 88 fL (82-100); MONOCYTES # (AUTO) 0.6 K/uL (0.1-1.30); NEUTROPHILS # (AUTO) 4.2 K/uL (1.8-8.9); NEUTROPHILS % (AUTO) 74.2 % (43.0-81.0); PLATELET COUNT (AUTO) 170 K/uL (150-450); RED BLOOD CELL COUNT(AUTO) 4.01 MIL/uL (4.0-5.2); WHITE BLOOD COUNT (AUTO) 5.7 K/uL (4.3-11.0)
[2022-05-12 04:39] LABS: CREATININE 5.8 mg/dL (0.6-1.3); MAGNESIUM 2.8 mg/dL (1.8-2.4); PHOSPHORUS 7.3 mg/dL (2.5-4.9)
[2022-05-12 04:44] LABS: POTASSIUM 6.9 mmol/L (3.5-5.1)
[2022-05-12 04:52] LABS: THYROID STIMULATING HORMONE 3.533 uIU/mL (0.358-3.74)
[2022-05-12] MEDS ORDERED: INSULIN REGULAR, HUMAN 100 UNIT/ML 3 ML VIAL ONE (05:57)
[2022-05-12] MEDS ORDERED: INSULIN REGULAR, HUMAN 100 UNIT/ML 3 ML VIAL IV ONE (06:00)
[2022-05-12] MEDS ORDERED: DEXTROSE 50%-WATER 50 ML DISP.SYRIN IVP ONE (06:00)
--- NOTE | 2022-05-12 07:05 | NUR ---
CLIENT RELATION SPECIALIST OPENING NOTE: RECEIVED PT. IN BED, AWAKE AOX4, NO COMPLAINTS OF PAIN/DISCOMFORT AT THIS TIME. ON RA, SATURATING AT 100%. NO S/S OF RESPIRATORY DISTRESS. DITCH INSPECTOR READS NSR WITH V PACING AT 75 BPM. ON DIAPER, VOIDING YELLOW URINE. WILL INSERT DANG CATH PER MD ORDER. SACRAL DISCOLORATION NOTED. WAITING FOR WOUND CONSULT. IV ACCESS ON L AC #18G, WITH SODIUM BICARB RUNNING AT 100 ML/HR. IV SITE DRESSING C/D/I WITH NO S/S OF INFILTRATION. WAITING FOR ULTRASOUND GUIDED PARACENTESIS FOR ASCITES, HD CATH PLACEMENT AND HEMODIALYSIS. ALL CONSENTS SIGNED. SAFETY MEASURES IN PLACE: BED IN LOWEST AND LOCKED POSITION, HOB ELEVATED AT 30 DEGREES, BED ALARM ON, SIDE RAILS UP X2, CALL LIGHT WITHIN EASY REACH. WILL ENCOURAGE FREQUENT REPOSITIONING IN BED AT LEAST Q2H. WILL CONTINUE TO MONITOR PT. FOR ANY CHANGES.
[2022-05-12] MEDS ORDERED: PANTOPRAZOLE 40 MG TABLET.DR PO SCH (07:30)
--- NOTE | 2022-05-12 07:31 | NUR ---
RN NOTE PT 6.9. BUN 107 CREA 5.8. NOTIFIED CAP MAKER LALITHA WITH NEW ORDERS INSULIN AND D50 WAS GIVEN ORDERED. DR HUNTER SEEN THE PT. PT AWAKE, ABLE TO MAKE NEEDS KNOWN. ENDORSED TO ALDRED FOR CHICHO.
--- NOTE | 2022-05-12 07:45 | NUR ---
WOUND CARE CONSULT: RECEIVED REQUEST FOR SACRAL/INNER BUTTOCKS SKIN ASSESSMENT. PT NOTED TO HAVE RED RASH WITH INTACT DEEP TISSUE INJURY TO SACRUM WHICH EXTENDS TO BUTTOCKS, PRESENT ON ADMISSION. RECOMMENDATIONS MADE FOR SKIN PROTECTION. DISCUSSED WITH NURSING STAFF. MD IN AGREEMENT WITH PLAN OF CARE.
[2022-05-12] MEDS ORDERED: BLOOD SUGAR DIAGNOSTIC 1 EACH STRIP IN PRN (08:00)
[2022-05-12] MEDS ORDERED: LIDOCAINE 1% INJ 50 ML MDV IJ ONE (08:00)
[2022-05-12] MEDS: BISACODYL (5 MG) 5 MG TABLET.DR PO SCH (08:25)
[2022-05-12] MEDS: ASPIRIN EC 81 MG TABLET.DR PO SCH (08:25)
[2022-05-12] MEDS: PANTOPRAZOLE 40 MG TABLET.DR PO SCH (08:25)
[2022-05-12] MEDS: CARVEDILOL 6.25 MG TABLET PO SCH ×2 (09:00→17:57)
[2022-05-12] MEDS: MIDODRINE HCL (5MG) 5 MG TABLET PO SCH ×2 (09:00→14:08)
[2022-05-12] MEDS ORDERED: ISOSORBIDE MONONITRATE (30MG) 30 MG TAB.SR.24H PO SCH (09:00)
--- NOTE | 2022-05-12 09:30 | NUR ---
VISUAL BASIC .NET DEVELOPER NOTE: BP MEDS SCHEDULED AT 0900 WILL BE HELD DUE TO PENDING HEMODIALYSIS TODAY. WILL CONTINUE TO MONITOR PT.'S HEMODYNAMIC STATUS.
[2022-05-12] MEDS: CLOTRIMAZOLE 1% 15 GM TUBE TP SCH ×2 (09:48→17:57)
[2022-05-12] MEDS ORDERED: DEXTROSE 50%-WATER 50 ML DISP.SYRIN IV PRN (11:00)
--- NOTE | 2022-05-12 11:30 | NUR ---
DOOR OPERATOR NOTE: DANG CATHETER INSERTED, DRAINING CLEAR YELLOW URINE AND BAG BELOW BLADDER. PARACENTESIS NOT DONE ULTRASOUND SHOWED NOT ENOUGH FLUID TO DRAIN. HD CATH PLACED, WAITING FOR XRAY TO CONFIRM RIGHT IJ HD CATH PLACEMENT. NO S/S OF BLEEDING NOTED ON HD CATH INSERTION SITE AT THIS TIME. WILL CONTINUE TO MONITOR PT. FOR ANY CHANGES.
--- NOTE | 2022-05-12 14:00 | NUR ---
MODEL MAKING SUPERVISOR NOTE: HD STARTED AT 1152 AND ENDED AT 1352. PT. TOLERATED WELL AND GOT 1,000 ML OF FLUID OUT. PT. VS STABLE AT THIS TIME. NO S/S OF BLEEDING NOTED AT SITE. NO COMPLAINTS OF DIZZINESS. WILL CONTINUE TO MONITOR PT.'S HEMODYNAMIC STATUS.
[2022-05-12] MEDS: BLOOD SUGAR DIAGNOSTIC 1 EACH STRIP VI SCH ×3 (14:21→21:06)
[2022-05-12] MEDS ORDERED: MIDODRINE HCL (5MG) 5 MG TABLET PO PRN (18:30)
--- NOTE | 2022-05-12 19:20 | NUR ---
BLOCK MAKING MACHINE OPERATOR CLOSING NOTE: PT. REMAINS IN BED, AWAKE AOX4, NO COMPLAINTS OF PAIN/DISCOMFORT AT THIS TIME. ON RA, SATURATING AT 96%. NO S/S OF RESPIRATORY DISTRESS. DATA RECOVERY PLANNER READS V PACING AT 90 BPM. ON DANG CATH, DRAINED 300 ML CLEAR YELLOW URINE THIS SHIFT. SACRAL DISCOLORATION NOTED, SKIN PRECAUTIONS DONE ORDERED. IV ACCESS ON L AC #18G, PATENT AND SALINE LOCKED. R IJ HD CATH INSERTED THIS SHIFT, DRESSING C/D/I. IV SITE DRESSING C/D/I WITH NO S/S OF INFILTRATION. SAFETY MEASURES MAINTAINED: BED IN LOWEST AND LOCKED POSITION, HOB ELEVATED AT 30 DEGREES, BED ALARM ON, SIDE RAILS UP X2, CALL LIGHT WITHIN EASY REACH. ENCOURAGED FREQUENT REPOSITIONING IN BED AT LEAST Q2H. ENDORSED CONTINUITY OF CARE TO ELECTRONIC DIE MAKER RN DANITZA.
[2022-05-12] MEDS: INSULIN GLARGINE, 100 UNIT/ML CARTRIDGE SQ SCH (21:25)
[2022-05-13] VITALS (24 sets, daily range): BP systolic 89–135; BP diastolic 29–77
[2022-05-13 04:37] LABS: BASOPHILS % (AUTO) 0.4 % (0.0-2.0); EOSINOPHILS % (AUTO) 1.9 % (0.0-6.0); HEMATOCRIT 34 % (33-45); HEMOGLOBIN 10.4 g/dL (11.5-14.8); LYMPHOCYTES # (AUTO) 0.7 K/uL (0.8-4.8); LYMPHOCYTES % (AUTO) 12.5 % (20.0-44.0); MEAN CORPUSCULAR HGB CONC 31 g/dl (31.0-36.0); MEAN CORPUSCULAR VOLUME 89 fL (82-100); MONOCYTES # (AUTO) 0.6 K/uL (0.1-1.30); MONOCYTES % (AUTO) 10.8 % (2.0-12.0); NEUTROPHILS % (AUTO) 74.4 % (43.0-81.0); PLATELET COUNT (AUTO) 140 K/uL (150-450); RED BLOOD CELL COUNT(AUTO) 3.78 MIL/uL (4.0-5.2); WHITE BLOOD COUNT (AUTO) 5.3 K/uL (4.3-11.0)
[2022-05-13 04:49] LABS: CALCIUM, SERUM 8.8 mg/dL (8.5-10.1); CREATININE 3.8 mg/dL (0.6-1.3); MAGNESIUM 2.3 mg/dL (1.8-2.4); PHOSPHORUS 4.4 mg/dL (2.5-4.9); POTASSIUM 5.6 mmol/L (3.5-5.1)
--- NOTE | 2022-05-13 07:10 | NUR ---
CASTING HOUSE WORKER CLOSING NOTE: RECEIVED PT. IN BED, AWAKE AOX4, NO COMPLAINTS OF PAIN/DISCOMFORT AT THIS TIME. ON RA, SATURATING AT 96%. NO S/S OF RESPIRATORY DISTRESS. COMMUTATOR REPAIRER READS V PACING AT 69 BPM. ON DANG CATH, DRAINING CLEAR ANGELINA URINE, BAG BELOW THE BLADDER. DISCOLORATION NOTED. WILL DO TREATMENT ORDERED. IV ACCESS ON L AC #18G, PATENT AND SALINE LOCKED. WAITING FOR MIDLINE PLACEMENT FOR EMERGENCY IV ACCESS. IV SITE DRESSING C/D/I WITH NO S/S OF INFILTRATION. HAS R IJ HD CATH, DRESSING C/D/I. SAFETY MEASURES IN PLACE: BED IN LOWEST AND LOCKED POSITION, HOB ELEVATED AT 30 DEGREES, BED ALARM ON, SIDE RAILS UP X2, CALL LIGHT WITHIN EASY REACH. WILL ENCOURAGE FREQUENT REPOSITIONING IN BED AT LEAST Q2H. WILL CONTINUE TO MONITOR PT. FOR ANY CHANGES. Addendum: 05/13/22 at 1157 by SUPA BHAKTA RN CORRECTION: THIS IS AN OPENING NOTE, NOT CLOSING NOTE.
[2022-05-13] MEDS: CARVEDILOL 6.25 MG TABLET PO SCH ×2 (08:13→17:18)
[2022-05-13] MEDS: BLOOD SUGAR DIAGNOSTIC 1 EACH STRIP VI SCH ×4 (08:15→21:18)
[2022-05-13] MEDS: ASPIRIN EC 81 MG TABLET.DR PO SCH (08:17)
[2022-05-13] MEDS: BISACODYL (5 MG) 5 MG TABLET.DR PO SCH (08:17)
[2022-05-13] MEDS: CLOTRIMAZOLE 1% 15 GM TUBE TP SCH ×2 (08:18→17:16)
[2022-05-13] MEDS: PANTOPRAZOLE 40 MG TABLET.DR PO SCH (08:18)
--- NOTE | 2022-05-13 12:05 | NUR ---
SHOVEL LOG LOADER OPERATOR NOTE: HD STARTED AT 0930 AND ENDED AT 1200. PT. TOLERATED WELL AND GOT 1,000 ML OF FLUID OUT. PT. VS STABLE AT THIS TIME. NO S/S OF BLEEDING NOTED AT SITE. NO COMPLAINTS OF DIZZINESS. WILL CONTINUE TO MONITOR PT.'S HEMODYNAMIC STATUS.
[2022-05-13] MEDS: INSULIN REGULAR, HUMAN 100 UNIT/ML 3 ML VIAL SQ PRN (17:23)
--- NOTE | 2022-05-13 18:30 | NUR ---
JUDGE CLERK NOTE: PT. NOTED TO HAVE BLEEDING FROM THE VAGINA WHEN PT EVALUATED PT AT BEDSIDE. PT. SAID SHE WAS ALREADY MENOPAUSE AT 58 YEARS OLD BUT STARTED NOTICING BLEEDING SINCE LAST YEAR. DR. LE NOTIFIED. WILL ENDORSE TO CLIPPING MARKER RN WELL.
--- NOTE | 2022-05-13 19:15 | NUR ---
DENTAL ASSOCIATE CLOSING NOTE: PT. REMAINS IN BED, AWAKE AOX4, NO COMPLAINTS OF PAIN/DISCOMFORT AT THIS TIME. ON RA, SATURATING AT 97%. NO S/S OF RESPIRATORY DISTRESS. MORPHOLOGY TEACHER READS V PACING AT 95 BPM. ON DANG CATH, DRAINED 100 ML CLEAR ANGELINA URINE THIS SHIFT. WOUND TREATMENT DONE ORDERED. IV ACCESS ON L AC #18G AND VERONA MIDLINE #18G; BOTH PATENT AND SALINE LOCKED. R IJ HD CATH DRESSING C/D/I. IV SITE DRESSINGS C/D/I WITH NO S/S OF INFILTRATION. 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 SAFETY MEASURES MAINTAINED: BED IN LOWEST AND LOCKED POSITION, HOB ELEVATED AT 30 DEGREES, BED ALARM ON, SIDE RAILS UP X2, CALL LIGHT WITHIN EASY REACH. ENCOURAGED FREQUENT REPOSITIONING IN BED AT LEAST Q2H. ENDORSED CONTINUITY OF CARE TO PULVERIZER TENDER RN DANITZA.
[2022-05-13] MEDS: MUPIROCIN OINT 2% 22 GM TUBE NS SCH (21:19)
[2022-05-13] MEDS: INSULIN GLARGINE, 100 UNIT/ML CARTRIDGE SQ SCH (21:21)
[2022-05-13] MEDS: *INSULIN REGULAR(HUMULIN R)HUM 100 UNIT/ML VIAL SQ PRN (21:22)
[2022-05-14] VITALS (58 sets, daily range): BP systolic 75–144; BP diastolic 22–78
[2022-05-14 04:56] LABS: BASOPHILS % (AUTO) 0.7 % (0.0-2.0); EOSINOPHILS % (AUTO) 1.5 % (0.0-6.0); HEMATOCRIT 31 % (33-45); HEMOGLOBIN 9.9 g/dL (11.5-14.8); LYMPHOCYTES # (AUTO) 0.8 K/uL (0.8-4.8); LYMPHOCYTES % (AUTO) 14.1 % (20.0-44.0); MEAN CORPUSCULAR HGB CONC 32 g/dl (31.0-36.0); MEAN CORPUSCULAR VOLUME 88 fL (82-100); MONOCYTES # (AUTO) 0.8 K/uL (0.1-1.30); MONOCYTES % (AUTO) 13.7 % (2.0-12.0); NEUTROPHILS # (AUTO) 4.1 K/uL (1.8-8.9); PLATELET COUNT (AUTO) 113 K/uL (150-450); RED BLOOD CELL COUNT(AUTO) 3.52 MIL/uL (4.0-5.2); WHITE BLOOD COUNT (AUTO) 5.9 K/uL (4.3-11.0)
[2022-05-14 05:15] LABS: ALBUMIN 2.8 g/dL (3.4-5.0); BILIRUBIN,DIRECT 0.4 mg/dL (0.0-0.2); CALCIUM, SERUM 8.9 mg/dL (8.5-10.1); POTASSIUM 4.5 mmol/L (3.5-5.1); TOTAL PROTEIN, SERUM 6.9 g/dL (6.4-8.2)
[2022-05-14] MEDS: PANTOPRAZOLE 40 MG TABLET.DR PO SCH (07:33)
[2022-05-14] MEDS: BLOOD SUGAR DIAGNOSTIC 1 EACH STRIP VI SCH ×4 (07:33→21:37)
--- NOTE | 2022-05-14 08:00 | NUR ---
rn notes received patient in the bed a/o x4 obese, no acute respiratory distress, patient room air, hr-63 V pacing . bp taken manually 98/55, patient refused pain, due medication administered, seen patient via Dr Forrester, patient going to be dialyze daily because of edema. noted patient having bleeding from vaginal area , per patient seen outpatient ORGY doctor will follow up after hospitalization. iv access on RIJ HD cath, and agnieszka midline, intact, patient using bed side commode, needs attended and anticipated, tolerated breakfast 50%. will follow up.
[2022-05-14] MEDS: MUPIROCIN OINT 2% 22 GM TUBE NS SCH ×2 (08:49→21:37)
[2022-05-14] MEDS: ASPIRIN EC 81 MG TABLET.DR PO SCH (08:49)
[2022-05-14] MEDS: BISACODYL (5 MG) 5 MG TABLET.DR PO SCH (08:49)
[2022-05-14] MEDS: CLOTRIMAZOLE 1% 15 GM TUBE TP SCH ×2 (08:50→16:48)
--- NOTE | 2022-05-14 10:00 | NUR ---
rn notes patient getting HD at this time.
[2022-05-14] MEDS ORDERED: ALBUMIN 25% 25 GM in PREMIX 1 EA IV PRN (10:30)
--- NOTE | 2022-05-14 12:50 | NUR ---
RN NOTES FINISHED HD AT THIS TIME OUTPUT WAS 2000ML, BP 144/59, P-83, O2-99RA, T-97.9F, BS-77MG/DL. PATIENT HAVING LUNCH. WILL FOLLOW UP.
--- NOTE | 2022-05-14 13:37 | NUR ---
RN NOTES PT WITH THE PATIENT. PATIENT WALKING IN THE HALLWAY, BP -127/69, FAMILY NEXT TO THE BED.
[2022-05-14] MEDS: INSULIN REGULAR, HUMAN 100 UNIT/ML 3 ML VIAL SQ PRN ×2 (16:54→16:58)
--- NOTE | 2022-05-14 16:59 | NUR ---
rn notes bs-176 mg/dl coverage given, removed Fernandez catheter per Dr Forrester orders.
--- NOTE | 2022-05-14 18:14 | NUR ---
rn notes pm acre done, due medication administered, patient has no sob, refused pain. tolerated dinner 50% self. call light within to reach. endorsed oncoming nurse antonietta.
[2022-05-14] MEDS: INSULIN GLARGINE, 100 UNIT/ML CARTRIDGE SQ SCH (21:38)
[2022-05-15] VITALS (15 sets, daily range): BP systolic 92–136; BP diastolic 42–71
[2022-05-15 04:56] LABS: BASOPHILS # (AUTO) 0.1 K/uL (0.0-0.2); BASOPHILS % (AUTO) 1.2 % (0.0-2.0); EOSINOPHILS % (AUTO) 2.6 % (0.0-6.0); HEMATOCRIT 32 % (33-45); HEMOGLOBIN 10.1 g/dL (11.5-14.8); LYMPHOCYTES # (AUTO) 0.8 K/uL (0.8-4.8); LYMPHOCYTES % (AUTO) 15.8 % (20.0-44.0); MEAN CORPUSCULAR HGB CONC 32 g/dl (31.0-36.0); MEAN CORPUSCULAR VOLUME 89 fL (82-100); MONOCYTES # (AUTO) 0.6 K/uL (0.1-1.30); MONOCYTES % (AUTO) 12.3 % (2.0-12.0); NEUTROPHILS # (AUTO) 3.5 K/uL (1.8-8.9); NEUTROPHILS % (AUTO) 68.1 % (43.0-81.0); PLATELET COUNT (AUTO) 102 K/uL (150-450); RED BLOOD CELL COUNT(AUTO) 3.57 MIL/uL (4.0-5.2); WHITE BLOOD COUNT (AUTO) 5.2 K/uL (4.3-11.0)
[2022-05-15 05:10] LABS: CALCIUM, SERUM 9.5 mg/dL (8.5-10.1); CREATININE 2.7 mg/dL (0.6-1.3); MAGNESIUM 2.1 mg/dL (1.8-2.4); PHOSPHORUS 4.2 mg/dL (2.5-4.9); POTASSIUM 4.4 mmol/L (3.5-5.1)
[2022-05-15] MEDS: BLOOD SUGAR DIAGNOSTIC 1 EACH STRIP VI SCH ×4 (07:32→22:07)
[2022-05-15] MEDS: BISACODYL (5 MG) 5 MG TABLET.DR PO SCH (08:03)
[2022-05-15] MEDS: PANTOPRAZOLE 40 MG TABLET.DR PO SCH (08:03)
[2022-05-15] MEDS: ASPIRIN EC 81 MG TABLET.DR PO SCH (08:03)
[2022-05-15] MEDS: MUPIROCIN OINT 2% 22 GM TUBE NS SCH ×2 (08:04→20:03)
[2022-05-15] MEDS: CLOTRIMAZOLE 1% 15 GM TUBE TP SCH ×3 (08:04→18:58)
--- NOTE | 2022-05-15 11:40 | NUR ---
RN MS NOTES RECEIVED PT FROM DIESEL ENGINE PIPE FITTER VIA WHEELCHAIR, PT IS AWAKE, ALERT AND ORIENTED, DENIES PAIN, NOT IN DISTRESS, ROOM SET UP ORIENTATION PROVIDED, VERBALIZED UNDERSTANDING, CALL LIGHT WITHIN EASY REACH.
[2022-05-15] MEDS: INSULIN REGULAR, HUMAN 100 UNIT/ML 3 ML VIAL SQ PRN (12:28)
--- NOTE | 2022-05-15 17:00 | NUR ---
REQUESTED LOTRIMIN CREAM 1% TP, BID PRESCRIBED FROM PHARMACY
--- NOTE | 2022-05-15 18:55 | NUR ---
CLOTRIMAZOLE JUST RECEIVED
--- NOTE | 2022-05-15 19:30 | NUR ---
MS RN NOTES RECEIVED PATIENT AWAKE IN BED. PATIENT IS A/O TIMES 4. NO PAIN NOTED. NO SOB NOTED. NO DISTRESS NOTED. IV ACCESS ON THE VERONA G 18 INTACT. RIGHT IJ HD CATHETER INTACT AND PATENT. ABLE TO MAKE NEEDS KNOWN. ALL SAFETY MEASURES IN PLACE. BED LOCKED IN THE LOWEST POSITION. CALL LIGHT AND TABLE IN EASY REACH. SIDE RAILS UP TIMES 2. WILL CONTINUE TO MONITOR CLOSELY.
[2022-05-15] MEDS: INSULIN GLARGINE, 100 UNIT/ML CARTRIDGE SQ SCH (22:11)
[2022-05-15] MEDS: *INSULIN REGULAR(HUMULIN R)HUM 100 UNIT/ML VIAL SQ PRN (22:12)
[2022-05-16 06:08] LABS: BASOPHILS % (AUTO) 0.6 % (0.0-2.0); EOSINOPHILS % (AUTO) 3.6 % (0.0-6.0); HEMATOCRIT 33 % (33-45); HEMOGLOBIN 10.2 g/dL (11.5-14.8); LYMPHOCYTES # (AUTO) 0.8 K/uL (0.8-4.8); LYMPHOCYTES % (AUTO) 15.9 % (20.0-44.0); MEAN CORPUSCULAR HGB CONC 31 g/dl (31.0-36.0); MEAN CORPUSCULAR VOLUME 89 fL (82-100); MONOCYTES # (AUTO) 0.6 K/uL (0.1-1.30); MONOCYTES % (AUTO) 13.4 % (2.0-12.0); NEUTROPHILS # (AUTO) 3.2 K/uL (1.8-8.9); NEUTROPHILS % (AUTO) 66.5 % (43.0-81.0); PLATELET COUNT (AUTO) 124 K/uL (150-450); RED BLOOD CELL COUNT(AUTO) 3.69 MIL/uL (4.0-5.2); WHITE BLOOD COUNT (AUTO) 4.8 K/uL (4.3-11.0)
[2022-05-16 06:20] LABS: CALCIUM, SERUM 9.2 mg/dL (8.5-10.1); CREATININE 3.5 mg/dL (0.6-1.3); MAGNESIUM 2.2 mg/dL (1.8-2.4); PHOSPHORUS 4.3 mg/dL (2.5-4.9); POTASSIUM 4.4 mmol/L (3.5-5.1)
--- NOTE | 2022-05-16 06:58 | NUR ---
MS RN CLOSING NOTES PATIENT AWAKE IN BED. PATIENT IS A/O TIMES 4. NO PAIN NOTED. NO SOB NOTED. NO DISTRESS NOTED. IV ACCESS ON THE VERONA MID LINE G 18 INTACT. RIGHT IJ HD CATHETER INTACT AND PATENT. ABLE TO MAKE NEEDS KNOWN. ALL SAFETY MEASURES IN PLACE. BED LOCKED IN THE LOWEST POSITION. CALL LIGHT AND TABLE IN EASY REACH. SIDE RAILS UP TIMES 2. WILL ENDORSE FOR CHICHO..
--- NOTE | 2022-05-16 07:00 | NUR ---
MS RN OPENING NOTES: RECEIVED PT IN BED AWAKE, ALERT AND ORIENTED X 4 AND ABLE TO VERBALIZED NEEDS. NO SOB OR CARDIAC DISTRESS NOTED, ON ROOM AIR AND TOLERATED WELL. NOTED WITH R IJ HD CATH.IV ACCESS ON VERONA MIDLINE GAUGE 18 PATENT,INTACT AND SALINE LOCKED. KEPT RESTED AND COMFORTABLE. SAFETY MEASURES MAINTAINED: BED LOCKED AND IN LOWEST POSITION SIDE RAILS UP X 2 CALL LIGHT IN EASY REACH FOR HELP. WILL MONITOR ACCORDINGLY.
[2022-05-16] MEDS: BLOOD SUGAR DIAGNOSTIC 1 EACH STRIP VI SCH ×4 (07:35→22:00)
[2022-05-16] MEDS: PANTOPRAZOLE 40 MG TABLET.DR PO SCH (07:35)
[2022-05-16 08:39] VITALS: BP 116/68
[2022-05-16] MEDS: BISACODYL (5 MG) 5 MG TABLET.DR PO SCH (09:03)
[2022-05-16] MEDS: ASPIRIN EC 81 MG TABLET.DR PO SCH (09:03)
[2022-05-16] MEDS: CLOTRIMAZOLE 1% 15 GM TUBE TP SCH ×2 (09:06→17:06)
[2022-05-16] MEDS: MUPIROCIN OINT 2% 22 GM TUBE NS SCH ×2 (09:06→22:00)
[2022-05-16 16:16] VITALS: BP 107/46
--- NOTE | 2022-05-16 18:47 | NUR ---
MS RN CLOSING NOTES: PATIENT IN BED, ASLEEP EASILY AROUSED WITH STIMULI. A/O X 4 AND ABLE TO VERBALIZED NEEDS. NO SOB OR CARDIAC DISTRESS NOTED. DENIES PAIN/DISCOMFORTS AT THIS TIME. NOTED WITH RIGHT IJ HD CATHETER. ON BS MONITORING AND NO SIGNS OF HYPO/HYPER GLYCEMIA, INSULIN ADMINISTRATION PER SL. IV ACCESS ON VERONA MIDLINE, PATENT INTACT AND SL. PT ABLE TO AMBULATE IN THE BATHROOM WITH FWW. SAFETY MEASURES MAINTAINED: BED LOCKED AND IN LOWEST POSITION SIDE RAILS UP X2. CALL LIGHT AND BED SIDE TABLE IN EASY REACH. WILL ENDORSE TO MEMBER SERVICE REPRESENTATIVE RN FOR CONTINUITY OF CARE.
--- NOTE | 2022-05-16 19:30 | NUR ---
MS OPENING NOTE RECEIVED PATIENT IN BED, AWAKE, ALERT AND ORIENTED X4. ABLE TO COMMUNICATE NEEDS WITH THE STAFFS. AFEBRILE AND NOT IN ANY FORM OF ACUTE DISTRESS. BREATHING EVEN AND NON LABORED. NO C/O PAIN OR DISCOMFORT AT THIS TIME OF THE SHIFT. WITH IV ACCESS ON VERONA MID LINE 18G AND RIGHT IJ HD CATH. SAFETY MEASURES IN PLACE. KEPT BED IN LOCKED AND IN LOW POSITION. SIDE RAILS UP X2. ADVISED TO USE THE CALL LIGHT WHEN IN NEED OF ASSISTANCE.
[2022-05-16 20:55] VITALS: BP 120/80
[2022-05-16] MEDS: INSULIN GLARGINE, 100 UNIT/ML CARTRIDGE SQ SCH (22:01)
[2022-05-17 05:55] LABS: BASOPHILS % (AUTO) 0.7 % (0.0-2.0); HEMATOCRIT 34 % (33-45); HEMOGLOBIN 10.7 g/dL (11.5-14.8); LYMPHOCYTES # (AUTO) 0.8 K/uL (0.8-4.8); LYMPHOCYTES % (AUTO) 14.4 % (20.0-44.0); MEAN CORPUSCULAR HGB CONC 31 g/dl (31.0-36.0); MEAN CORPUSCULAR VOLUME 88 fL (82-100); MONOCYTES # (AUTO) 0.6 K/uL (0.1-1.30); MONOCYTES % (AUTO) 9.9 % (2.0-12.0); NEUTROPHILS # (AUTO) 4.2 K/uL (1.8-8.9); PLATELET COUNT (AUTO) 142 K/uL (150-450); RED BLOOD CELL COUNT(AUTO) 3.87 MIL/uL (4.0-5.2); WHITE BLOOD COUNT (AUTO) 5.7 K/uL (4.3-11.0)
[2022-05-17 06:18] LABS: CALCIUM, SERUM 9.8 mg/dL (8.5-10.1); CREATININE 3.8 mg/dL (0.6-1.3); MAGNESIUM 2.4 mg/dL (1.8-2.4); PHOSPHORUS 4.7 mg/dL (2.5-4.9); POTASSIUM 5.2 mmol/L (3.5-5.1)
[2022-05-17] MEDS: BLOOD SUGAR DIAGNOSTIC 1 EACH STRIP VI SCH ×4 (06:33→22:19)
--- NOTE | 2022-05-17 06:46 | NUR ---
MS CLOSING NOTE PATIENT IN BED, ASLEEP BUT EASY TO AROUSE AND RESPONSIVE. ABLE TO COMMUNICATE NEEDS WITH THE STAFFS. AFEBRILE AND NOT IN ANY FORM OF ACUTE DISTRESS. BREATHING EVEN AND NON LABORED. NO C/O PAIN OR DISCOMFORT THROUGHOUT THE SHIFT. WITH IV ACCESS ON VERONA MID LINE 18G AND RIGHT IJ HD CATH. MONITORED FOR ANY S/SX. OF HYPO/HYPERGLYCEMIA. MEDICATED ORDERED. MONITORED FOR I AND O. SAFETY MEASURES IN PLACE. KEPT BED IN LOCKED AND IN LOW POSITION. SIDE RAILS UP X2. ADVISED TO USE THE CALL LIGHT WHEN IN NEED OF ASSISTANCE. ALL NURSING NEEDS ATTENDED. ENDORSED TO INCOMING SHIFT FOR CONTINUITY OF CARE.
[2022-05-17] MEDS: PANTOPRAZOLE 40 MG TABLET.DR PO SCH (07:26)
[2022-05-17 08:00] VITALS: BP 122/74
[2022-05-17] MEDS: ASPIRIN EC 81 MG TABLET.DR PO SCH (08:37)
[2022-05-17] MEDS: BISACODYL (5 MG) 5 MG TABLET.DR PO SCH (08:37)
[2022-05-17] MEDS: MUPIROCIN OINT 2% 22 GM TUBE NS SCH ×2 (08:38→23:28)
[2022-05-17] MEDS: CLOTRIMAZOLE 1% 15 GM TUBE TP SCH ×2 (08:38→16:52)
[2022-05-17] MEDS: *INSULIN REGULAR(HUMULIN R)HUM 100 UNIT/ML VIAL SQ PRN ×2 (12:36→23:32)
[2022-05-17 16:00] VITALS: BP 122/73
--- NOTE | 2022-05-17 16:00 | NUR ---
RN NOTES: PATIENT STARTED HD, PT STABLE. PT IS IN COMFORTABLE POSITION.
--- NOTE | 2022-05-17 18:45 | NUR ---
MS RN CLOSING NOTES: PATIENT IN BED, ASLEEP EASILY AROUSED WITH STIMULI. A/O X 4 AND ABLE TO VERBALIZED NEEDS. NO SOB OR CARDIAC DISTRESS NOTED. DENIES PAIN/DISCOMFORTS AT THIS TIME. NOTED WITH RIGHT IJ HD CATHETER, HD IS STILL ONGOING. ON BS MONITORING AND NO SIGNS OF HYPO/HYPER GLYCEMIA, INSULIN ADMINISTRATION PER SL. IV ACCESS ON VERONA MIDLINE, PATENT INTACT AND SL. PT ABLE TO AMBULATE IN THE BATHROOM WITH FWW. SAFETY MEASURES MAINTAINED: BED LOCKED AND IN LOWEST POSITION SIDE RAILS UP X2. CALL LIGHT AND BED SIDE TABLE IN EASY REACH. WILL ENDORSE TO [employer] RN FOR CONTINUITY OF CARE.
--- NOTE | 2022-05-17 19:20 | NUR ---
RN NOTES: PT S/P HD AND OUTPUT 1000ML. PT IS COMFORTABLE, VS STABLE AND ENDORSED TO CINDI PÉREZ.
--- NOTE | 2022-05-17 19:40 | NUR ---
MS RN OPENING NOTE RECEIVED PATIENT IN BED; AWAKE, ALERT AND ORIENTED X 4. ABLE TO MAKE NEEDS KNOWN. BREATHING EVEN AND NONLABORED. NOT IN ANY FORM OF ACUTE DISTRESS. NO C/O PAIN OR DISCOMFORT NOTED AT THIS TIME. WITH IV ACCESS ON VERONA MID LINE 18G AND RIGHT IJ HD CATH. SAFETY MEASURES IMPLEMENTED: CALL LIGHT AND TABLE WITHIN REACH, SIDE RAILS UP X 2, BED IN LOWEST LOCKED POSITION. WILL CONTINUE TO MONITOR.
[2022-05-17 20:00] VITALS: BP 122/75
[2022-05-17] MEDS: INSULIN GLARGINE, 100 UNIT/ML CARTRIDGE SQ SCH (23:31)
[2022-05-18 06:15] LABS: BASOPHILS % (AUTO) 0.6 % (0.0-2.0); EOSINOPHILS % (AUTO) 2.5 % (0.0-6.0); HEMATOCRIT 31 % (33-45); LYMPHOCYTES # (AUTO) 0.8 K/uL (0.8-4.8); LYMPHOCYTES % (AUTO) 15.1 % (20.0-44.0); MEAN CORPUSCULAR HGB CONC 32 g/dl (31.0-36.0); MEAN CORPUSCULAR VOLUME 89 fL (82-100); MONOCYTES # (AUTO) 0.5 K/uL (0.1-1.30); MONOCYTES % (AUTO) 9.6 % (2.0-12.0); NEUTROPHILS # (AUTO) 4.1 K/uL (1.8-8.9); NEUTROPHILS % (AUTO) 72.2 % (43.0-81.0); PLATELET COUNT (AUTO) 127 K/uL (150-450); RED BLOOD CELL COUNT(AUTO) 3.53 MIL/uL (4.0-5.2); WHITE BLOOD COUNT (AUTO) 5.6 K/uL (4.3-11.0)
[2022-05-18] MEDS: BLOOD SUGAR DIAGNOSTIC 1 EACH STRIP VI SCH ×4 (06:15→22:57)
[2022-05-18 06:46] LABS: CALCIUM, SERUM 9.3 mg/dL (8.5-10.1); MAGNESIUM 2.1 mg/dL (1.8-2.4); POTASSIUM 4.7 mmol/L (3.5-5.1)
--- NOTE | 2022-05-18 06:55 | NUR ---
MS RN CLOSING NOTE PATIENT IN BED; AWAKE, A/O X 4. ABLE. STABLE ON ROOM AIR. BREATHING EQUAL AND UNLABORED. IN NO APPARENT DISTRESS. IV ACCESS ON VERONA MID LINE 18G AND RIGHT IJ HD CATH. SAFETY MEASURES IN PLACE: CALL LIGHT AND TABLE WITHIN REACH, SIDE RAILS UP X 2, BED IN LOWEST LOCKED POSITION. ENDORSED TO MORNING SHIFT FOR [place].
--- NOTE | 2022-05-18 07:30 | NUR ---
RN Opening Note Patient AOx4 able to express her own concerns. Introduced myself to patient and made her aware of call light and plan of care, pt verbalized agreement. Patient sitting up in bed, states no discomfort. No signs of distress of discomfort, IV with no signs of infiltration. Will continue to monitor throughout shift and provide care as needed.
[2022-05-18 08:00] VITALS: BP 107/93
[2022-05-18] MEDS: BISACODYL (5 MG) 5 MG TABLET.DR PO SCH (08:15)
[2022-05-18] MEDS: ASPIRIN EC 81 MG TABLET.DR PO SCH (08:15)
[2022-05-18] MEDS: PANTOPRAZOLE 40 MG TABLET.DR PO SCH (08:15)
[2022-05-18] MEDS: CLOTRIMAZOLE 1% 15 GM TUBE TP SCH ×2 (08:29→16:40)
[2022-05-18] MEDS: MUPIROCIN OINT 2% 22 GM TUBE NS SCH ×2 (08:29→21:48)
[2022-05-18 16:17] VITALS: BP 122/91
--- NOTE | 2022-05-18 18:43 | NUR ---
RN Closing Note Patient AOx4 able to express her own concerns. Patient remained safe throughout shift, made aware of plan of care, patient agrees with scheduled cath placement tomorrow, states she will call daughter later on and inform her of POC, states she makes her own decisions. Had 2 BM's throughout shift. No issues throughout shift, patient IV line with no signs of infiltration. No respiratory distress. All medications administered as ordered
--- NOTE | 2022-05-18 19:17 | NUR ---
MS RN OPENING NOTES RECEIVED PT IN BED, AWAKE AT THIS TIME. A/O X4, ABLE TO MAKE NEEDS KNOWN. ON RA WITH NO S/S OF SOB OR LABORED BREATHING. DENIES PAIN AT THIS TIME. IV VERONA #18G SL, PATENT AND INTACT. SAFETY PRECAUTIONS IN PLACE: BED LOCKED AND IN LOW POSITION, SIDE RAILS UP X2, CALL LIGHT AND TRAY TABLE IN REACH. WILL CONTINUE TO MONITOR.
[2022-05-18] MEDS: INSULIN GLARGINE, 100 UNIT/ML CARTRIDGE SQ SCH (22:00)
[2022-05-18 22:05] VITALS: BP 139/72
[2022-05-19] VITALS (7 sets, daily range): BP systolic 99–114; BP diastolic 56–74
[2022-05-19 06:33] LABS: CALCIUM, SERUM 9.5 mg/dL (8.5-10.1); CREATININE 3.8 mg/dL (0.6-1.3); POTASSIUM 4.9 mmol/L (3.5-5.1)
[2022-05-19] MEDS: INSULIN REGULAR, HUMAN 100 UNIT/ML 3 ML VIAL SQ PRN (07:14)
[2022-05-19] MEDS: BLOOD SUGAR DIAGNOSTIC 1 EACH STRIP VI SCH ×4 (07:14→21:38)
--- NOTE | 2022-05-19 07:17 | NUR ---
MS RN CLOSING NOTES PT IN BED, SLEEPING AT THIS TIME. A/O X4, ABLE TO MAKE NEEDS KNOWN. STABLE ON RA WITH NO S/S OF SOB OR LABORED BREATHING. DENIES PAIN AT THIS TIME. IV VERONA #18G SL, PATENT AND INTACT. PT PLACED ON NPO @ 0600 FOR PERMACATH PROCEDURE FOR 1600. ALL CARE PROVIDED AND ADMINISTERED MEDICATIONS TOLERATED WELL. SAFETY PRECAUTIONS MAINTAINED: BED LOCKED AND IN LOW POSITION, SIDE RAILS UP X2, CALL LIGHT AND TRAY TABLE IN REACH. WILL ENDORSE CHICHO TO DAY SHIFT NURSE.
[2022-05-19] MEDS: PANTOPRAZOLE 40 MG TABLET.DR PO SCH (07:30)
--- NOTE | 2022-05-19 07:30 | NUR ---
RN Opening Note Patient AOx4 able to express her own concerns. Introduced myself to patient and made her aware of call light and plan of care, pt verbalized agreement. Patient sitting up in bed, states no discomfort. Patient made aware of procedure scheduled today and verbalized agreement. No signs of distress of discomfort, IV with no signs of infiltration. Will continue to monitor throughout shift and provide care as needed.
[2022-05-19] MEDS: ASPIRIN EC 81 MG TABLET.DR PO SCH (09:00)
[2022-05-19] MEDS: BISACODYL (5 MG) 5 MG TABLET.DR PO SCH (09:00)
[2022-05-19] MEDS ORDERED: HEPARIN SODIUM, PORCINE 1,000 UNIT/ML VIAL ONE (09:22)
[2022-05-19] MEDS ORDERED: IOHEXOL 240MG/ML 50 ML IV ONE (09:22)
[2022-05-19] MEDS ORDERED: LIDOCAINE HCL/MPF 1% 30 ML VIAL IJ ONE (09:22)
[2022-05-19] MEDS: CLOTRIMAZOLE 1% 15 GM TUBE TP SCH ×2 (09:26→17:00)
[2022-05-19] MEDS: MUPIROCIN OINT 2% 22 GM TUBE NS SCH ×2 (09:26→21:00)
[2022-05-19] MEDS ORDERED: MIDAZOLAM HCL 2 MG/2ML VIAL ONE (11:45)
[2022-05-19] MEDS ORDERED: KETAMINE HCL (500MG/10ML) 50 MG/ML VIAL ONE (11:45)
[2022-05-19] MEDS ORDERED: FENTANYL PF 100MCG/2ML AMPUL ONE (11:45)
[2022-05-19] MEDS ORDERED: ONDANSETRON HCL/PF 4 MG/2 ML VIAL ONE (13:49)
--- NOTE | 2022-05-19 19:01 | NUR ---
RN Closing Note Patient AOx4 able to express her own concerns. Patient remained safe throughout shift, made aware of plan of care, patient had dialysis catheter placed, came back safe with no issues. VSS remained stable, documented. Per MD patient to resumed previous diet, tolerated well. No issues throughout shift, patient IV line with no signs of infiltration. No respiratory distress. All medications administered as ordered
--- NOTE | 2022-05-19 19:50 | NUR ---
MS RN OPENING NOTE PATIENT AWAKE IN BED, ALERT/ORIENTED X 4, PT ABLE TO MAKE NEEDS KNOWN. PT STABLE ON RA, NO S/S OF DISTRESS OR SOB NOTED, BREATHING EVEN AND UNLABORED. PATIENT S/P PERMACATH PLACEMENT, DIALYSIS NURSE CURRENTLY AT BEDSIDE TO START DIALYSIS. SAFETY MEASURES IN PLACE: CALL LIGHT WITHIN REACH, SIDE RAILS UP X 2, BED LOCKED IN LOWEST POSITION, BED ALARM ON. WILL CONTINUE TO MONITOR PATIENT
--- NOTE | 2022-05-19 21:00 | NUR ---
MR RN CLOSING NOTE DIALYSIS FINISHED, 1.5 L OUT PER FINANCIAL SERVICES REPRESENTATIVE. HD CATH SIDE C/D/I. PATIENT TOLERATED WELL. WILL CONTINUE TO MONITOR
[2022-05-19] MEDS: ANCEF 1 GM/50 ML D5W IV SCH ×2 (21:17)
--- NOTE | 2022-05-19 21:44 | NUR ---
MS RN NOTE BACTROBAN FOR NARES NOT FOUND IN PATIENT CASSETTE OR AT BEDSIDE. PHARMACY CLOSED AT THIS TIME, UNABLE TO ADMINISTER. WILL ENDORSE TO DAYSHIFT RN TO ORDER FROM PHARMACY IN AM
[2022-05-19] MEDS: INSULIN GLARGINE, 100 UNIT/ML CARTRIDGE SQ SCH (22:00)
--- NOTE | 2022-05-20 02:32 | NUR ---
MS PUENTE NOTE PATIENT C/O 02/20 PAIN AT HD PERMACATH PLACEMENT SITE. NOTIFIED WORKERS COMPENSATION ADMINISTRATOR WITH ORDER FOR NORCO 10/325 MG Q6H PRN FOR PAIN. ORDER VERIFIED AND CARRIED OUT Addendum: 05/20/22 at 0426 by ZOILA LICONA RN ASSESSED SITE, DRESSING CLEAN, DRY AND INTACT
[2022-05-20] MEDS ORDERED: HYDROCODONE/APAP 10/325MG TABLET PO PRN (03:00)
[2022-05-20] MEDS: ANCEF 1 GM/50 ML D5W IV SCH ×2 (05:14)
[2022-05-20 05:53] LABS: BASOPHILS % (AUTO) 0.7 % (0.0-2.0); EOSINOPHILS % (AUTO) 0.8 % (0.0-6.0); HEMATOCRIT 33 % (33-45); HEMOGLOBIN 10.6 g/dL (11.5-14.8); LYMPHOCYTES # (AUTO) 0.8 K/uL (0.8-4.8); LYMPHOCYTES % (AUTO) 13.7 % (20.0-44.0); MEAN CORPUSCULAR HGB CONC 32 g/dl (31.0-36.0); MEAN CORPUSCULAR VOLUME 90 fL (82-100); MONOCYTES # (AUTO) 0.7 K/uL (0.1-1.30); MONOCYTES % (AUTO) 11.9 % (2.0-12.0); NEUTROPHILS # (AUTO) 4.4 K/uL (1.8-8.9); NEUTROPHILS % (AUTO) 72.9 % (43.0-81.0); PLATELET COUNT (AUTO) 161 K/uL (150-450); RED BLOOD CELL COUNT(AUTO) 3.73 MIL/uL (4.0-5.2); WHITE BLOOD COUNT (AUTO) 6.1 K/uL (4.3-11.0)
[2022-05-20 06:41] LABS: CALCIUM, SERUM 9.5 mg/dL (8.5-10.1); CREATININE 3.7 mg/dL (0.6-1.3); MAGNESIUM 2.4 mg/dL (1.8-2.4); PHOSPHORUS 5.3 mg/dL (2.5-4.9); POTASSIUM 5.2 mmol/L (3.5-5.1)
[2022-05-20] MEDS: BLOOD SUGAR DIAGNOSTIC 1 EACH STRIP VI SCH ×4 (06:50→22:10)
[2022-05-20] MEDS: INSULIN REGULAR, HUMAN 100 UNIT/ML 3 ML VIAL SQ PRN (06:51)
--- NOTE | 2022-05-20 07:30 | NUR ---
RN Opening Note Patient AOx4 able to express her own concerns. Introduced myself to patient and made her aware of call light and plan of care, pt verbalized agreement. Patient sitting up in bed, states no discomfort. Patient aware of scheduled dialysis and agrees with plan. No signs of distress of discomfort, IV with no signs of infiltration. Will continue to monitor throughout shift and provide care as needed.
--- NOTE | 2022-05-20 07:34 | NUR ---
MS RN CLOSING NOTE PATIENT SLEEPING IN BED, ALERT/ORIENTED X 4, PT ABLE TO MAKE NEEDS KNOWN. PT STABLE ON RA, NO S/S OF DISTRESS OR SOB NOTED, BREATHING EVEN AND UNLABORED. MEDICATIONS GIVEN ORDERED, PT NEEDS MET THROUGHOUT SHIFT. SAFETY MEASURES IN PLACE: CALL LIGHT WITHIN REACH, SIDE RAILS UP X 2, BED LOCKED IN LOWEST POSITION, BED ALARM ON. ENDORSED TO DAYSHIFT RN FOR CONTINUITY OF CARE
[2022-05-20 08:00] VITALS: BP 103/68
[2022-05-20] MEDS: ASPIRIN EC 81 MG TABLET.DR PO SCH (08:08)
[2022-05-20] MEDS: PANTOPRAZOLE 40 MG TABLET.DR PO SCH (08:08)
[2022-05-20] MEDS: BISACODYL (5 MG) 5 MG TABLET.DR PO SCH (08:08)
[2022-05-20] MEDS: MUPIROCIN OINT 2% 22 GM TUBE NS SCH (09:38)
[2022-05-20] MEDS: CLOTRIMAZOLE 1% 15 GM TUBE TP SCH ×2 (09:39→17:35)
--- NOTE | 2022-05-20 18:45 | NUR ---
RN Closing Note Patient AOx4 able to express her own concerns. Patient remained safe throughout shift, pt aware of hd chair time pending as an out patient. No issues throughout shift, patient IV line with no signs of infiltration. No respiratory distress. All medications administered as ordered. Will endorse to night nurse for continuity of care.
--- NOTE | 2022-05-20 19:35 | NUR ---
MS RN OPENING NOTE RECEIVED PATIENT IN BED; AWAKE, ALERT AND ORIENTED X 4. ABLE TO MAKE NEEDS KNOWN. BREATHING EVEN AND NONLABORED. NOT IN ANY FORM OF ACUTE DISTRESS. NO C/O PAIN OR DISCOMFORT NOTED AT THIS TIME. WITH IV ACCESS ON LEFT HAND 22G AND VERONA MID LINE. WITH RIGHT UPPER CHEST HD CATH; DRESSING C/D/I. SAFETY PRECAUTIONS IMPLEMENTED: CALL LIGHT AND TABLE WITHIN REACH, SIDE RAILS UP X 2, BED IN LOWEST LOCKED POSITION. WILL CONTINUE TO MONITOR THROUGHOUT SHIFT.
[2022-05-20 20:00] VITALS: BP 104/61
[2022-05-20] MEDS: INSULIN GLARGINE, 100 UNIT/ML CARTRIDGE SQ SCH (22:00)
--- NOTE | 2022-05-20 22:49 | NUR ---
RN NOTE BLOOD SUGAR - 120 MG/DL. NO INSULIN COVERAGE GIVEN PER SLIDING SCALE. INSULIN LANTUS HELD PER PATIENT'S REQUEST. REQUESTED TO EAT SALTINE CRACKERS. WILL CONTINUE TO MONITOR FOR S/S OF HYPOGLYCEMIA/HYPERGLYCEMIA.
[2022-05-21 05:41] LABS: BASOPHILS # (AUTO) 0.1 K/uL (0.0-0.2); EOSINOPHILS % (AUTO) 1.2 % (0.0-6.0); HEMATOCRIT 32 % (33-45); LYMPHOCYTES # (AUTO) 0.7 K/uL (0.8-4.8); LYMPHOCYTES % (AUTO) 10.4 % (20.0-44.0); MEAN CORPUSCULAR HGB CONC 31 g/dl (31.0-36.0); MEAN CORPUSCULAR VOLUME 90 fL (82-100); MONOCYTES # (AUTO) 0.6 K/uL (0.1-1.30); MONOCYTES % (AUTO) 9.6 % (2.0-12.0); NEUTROPHILS # (AUTO) 5.2 K/uL (1.8-8.9); NEUTROPHILS % (AUTO) 77.8 % (43.0-81.0); PLATELET COUNT (AUTO) 145 K/uL (150-450); RED BLOOD CELL COUNT(AUTO) 3.56 MIL/uL (4.0-5.2); WHITE BLOOD COUNT (AUTO) 6.7 K/uL (4.3-11.0)
[2022-05-21 06:09] LABS: ALBUMIN 3.3 g/dL (3.4-5.0); BILIRUBIN,DIRECT 0.5 mg/dL (0.0-0.2); BILIRUBIN,TOTAL 1.1 mg/dL (0.2-1.0); CALCIUM, SERUM 9.2 mg/dL (8.5-10.1); CREATININE 3.6 mg/dL (0.6-1.3); MAGNESIUM 2.3 mg/dL (1.8-2.4); PHOSPHORUS 4.7 mg/dL (2.5-4.9); POTASSIUM 4.5 mmol/L (3.5-5.1); TOTAL PROTEIN, SERUM 7.4 g/dL (6.4-8.2)
--- NOTE | 2022-05-21 06:45 | NUR ---
MS RN CLOSING NOTE PATIENT IN BED; AWAKE, A/O X 4. STABLE ON ROOM AIR. BREATHING EQUAL AND UNLABORED. IN NO APPARENT DISTRESS. DENIES ANY PAIN OR DISCOMFORT AT THIS TIME. WITH IV ACCESS ON LEFT HAND 22G AND VERONA MID LINE. WITH RIGHT UPPER CHEST HD CATH; DRESSING C/D/I. ALL NEEDS ATTENDED. SAFETY PRECAUTIONS MAINTAINED: CALL LIGHT AND TABLE WITHIN REACH, SIDE RAILS UP X 2, BED IN LOWEST LOCKED POSITION. ENDORSED TO MORNING NURSE FOR CHICHO.
[2022-05-21 07:00] VITALS: BP 91/51
--- NOTE | 2022-05-21 07:30 | NUR ---
MS RN OPENING NOTE PATIENT AWAKE IN BED, ALERT/ORIENTED X 4, PT ABLE TO MAKE NEEDS KNOWN. PT STABLE, NO S/S OF DISTRESS OR SOB NOTED, BREATHING EVEN AND UNLABORED. NO C/O PAIN OR DISCOMFORT NOTED, PATIENT WITH IV ACCESS ON LEFT HAND 22G, VERONA MID LINE & RT UC HD CATH. SAFETY MEASURES IN PLACE: CALL LIGHT WITHIN REACH, SIDE RAILS UP X 2, BED LOCKED IN LOWEST POSITION, BED ALARM ON. WILL CONTINUE TO MONITOR PATIENT
[2022-05-21] MEDS: BISACODYL (5 MG) 5 MG TABLET.DR PO SCH (08:45)
[2022-05-21] MEDS: PANTOPRAZOLE 40 MG TABLET.DR PO SCH (08:45)
[2022-05-21] MEDS: ASPIRIN EC 81 MG TABLET.DR PO SCH (08:45)
[2022-05-21] MEDS: BLOOD SUGAR DIAGNOSTIC 1 EACH STRIP VI SCH ×4 (08:52→22:32)
[2022-05-21] MEDS: CLOTRIMAZOLE 1% 15 GM TUBE TP SCH ×2 (09:29→18:10)
[2022-05-21 16:00] VITALS: BP 104/68
--- NOTE | 2022-05-21 19:02 | NUR ---
MS RN CLOSING NOTES PT IN BED, AWAKE AT THIS TIME. A/O X4, ABLE TO MAKE NEEDS KNOWN. STABLE ON RA WITH NO S/S OF SOB OR LABORED BREATHING. DENIES PAIN AT THIS TIME. IV ACCESS ON LEFT HAND 22G, VERONA MID LINE & RT UC HD CATH PATENT AND INTACT. ALL CARE PROVIDED AND ADMINISTERED MEDICATIONS TOLERATED WELL. SAFETY PRECAUTIONS MAINTAINED: BED LOCKED AND IN LOW POSITION, SIDE RAILS UP X2, CALL LIGHT AND TRAY TABLE IN REACH. WILL ENDORSE CHICHO TO NIGHTSHIFT NURSE.
--- NOTE | 2022-05-21 19:30 | NUR ---
MS RN OPENING NOTE RECEIVED PATIENT IN BED; PT AWAKE, ALERT AND ORIENTED X 4. ABLE TO MAKE NEEDS KNOWN. BREATHING EVEN AND NONLABORED, NO ACUTE DISTRESS NOTED. NO C/O PAIN OR DISCOMFORT AT THIS TIME. IV ACCESS TO LEFT HAND 22G AND LEFT UA MID LINE. RIGHT UPPER CHEST HD CATH; DRESSING C/D/I. SAFETY PRECAUTIONS IMPLEMENTED: CALL LIGHT AND TABLE WITHIN REACH, SIDE RAILS UP X 2, BED IN LOWEST LOCKED POSITION. WILL CONTINUE TO MONITOR PT THROUGHOUT SHIFT.
[2022-05-21 20:00] VITALS: BP 123/43
[2022-05-21] MEDS: INSULIN GLARGINE, 100 UNIT/ML CARTRIDGE SQ SCH (22:30)
[2022-05-21] MEDS: *INSULIN REGULAR(HUMULIN R)HUM 100 UNIT/ML VIAL SQ PRN (22:32)
[2022-05-22 05:51] LABS: BASOPHILS % (AUTO) 0.5 % (0.0-2.0); EOSINOPHILS % (AUTO) 0.6 % (0.0-6.0); HEMATOCRIT 32 % (33-45); HEMOGLOBIN 10.2 g/dL (11.5-14.8); LYMPHOCYTES # (AUTO) 0.3 K/uL (0.8-4.8); LYMPHOCYTES % (AUTO) 5.9 % (20.0-44.0); MEAN CORPUSCULAR HGB CONC 31 g/dl (31.0-36.0); MEAN CORPUSCULAR VOLUME 90 fL (82-100); MONOCYTES # (AUTO) 0.9 K/uL (0.1-1.30); MONOCYTES % (AUTO) 16.1 % (2.0-12.0); NEUTROPHILS # (AUTO) 4.1 K/uL (1.8-8.9); NEUTROPHILS % (AUTO) 76.9 % (43.0-81.0); PLATELET COUNT (AUTO) 158 K/uL (150-450); WHITE BLOOD COUNT (AUTO) 5.3 K/uL (4.3-11.0)
[2022-05-22 06:28] LABS: CALCIUM, SERUM 9.5 mg/dL (8.5-10.1); CREATININE 3.9 mg/dL (0.6-1.3); MAGNESIUM 2.3 mg/dL (1.8-2.4); PHOSPHORUS 4.6 mg/dL (2.5-4.9); POTASSIUM 4.7 mmol/L (3.5-5.1)
--- NOTE | 2022-05-22 07:00 | NUR ---
MS RN CLOSING NOTE PT IN BED, AWAKE AT THIS TIME. A/O X4, ABLE TO MAKE NEEDS KNOWN. STABLE ON RA, NO SOB OR LABORED BREATHING. DENIES PAIN AT THIS TIME. IV ACCESS to LEFT HAND 22G, LEFT UA MID LINE & RIGHT UC HD CATH PATENT AND INTACT. ALL CARE PROVIDED, AND MEDICATIONS ADMINISTERED ON TIMELY MANNER. SAFETY PRECAUTIONS MAINTAINED: BED LOCKED AND IN LOW POSITION, SIDE RAILS UP X2, CALL LIGHT AND TRAY TABLE IN REACH. WILL ENDORSE PT TO MORNING SHIFT NURSE.
--- NOTE | 2022-05-22 07:15 | NUR ---
ms rn received patient , awake,alert,oriented x4,not in any form of distress, respirations even and unlabored,no sob noted, held meds at this time, patient will have hd today.
[2022-05-22] MEDS: BLOOD SUGAR DIAGNOSTIC 1 EACH STRIP VI SCH ×4 (07:54→22:10)
[2022-05-22] MEDS: INSULIN REGULAR, HUMAN 100 UNIT/ML 3 ML VIAL SQ PRN ×2 (07:55→18:25)
[2022-05-22 08:00] VITALS: BP 110/65
--- NOTE | 2022-05-22 11:00 | NUR ---
ms rn hd done w/ 2000ml output, tolerated well w/ vitals wnl.
[2022-05-22 12:09] LABS: LYMPHOCYTES % (MANUAL) 8 % (16-48); MONOCYTES % (MANUAL) 9 % (0-11.0); NEUTROPHILS % (MANUAL) 83 (42-76)
[2022-05-22] MEDS: PANTOPRAZOLE 40 MG TABLET.DR PO SCH (12:45)
[2022-05-22] MEDS: BISACODYL (5 MG) 5 MG TABLET.DR PO SCH (12:46)
[2022-05-22] MEDS: ASPIRIN EC 81 MG TABLET.DR PO SCH (12:46)
[2022-05-22] MEDS: CLOTRIMAZOLE 1% 15 GM TUBE TP SCH ×2 (15:18→16:26)
[2022-05-22 16:00] VITALS: BP 132/70
--- NOTE | 2022-05-22 19:05 | NUR ---
MS RN OPENING NOTE PATIENT IS SITTING IN BED. SHE IS AWAKE, ALERT AND ORIENTED X 4. ABLE TO MAKE NEEDS KNOWN. SHE IS ON RA, BREATHING EVENLY, NONLABORED. NO S/S OF SOB OR DISTRESS. NO C/O PAIN . IV ACCESS ONE IS AT HER LEFT HAND, #22G, AND ANOTHER ONE IS AT HER LEFT UA MID LINE, #18G. FLUSHED WITH NS. ALL PATENT AND INTACT. RIGHT UPPER CHEST ISN PERMACATH; DRESSING C/D/I. SAFETY PRECAUTIONS IMPLEMENTED: CALL LIGHT AND TABLE WITHIN REACH, SIDE RAILS UP X 2, BED IN LOWEST AND LOCKED POSITION. WILL CONTINUE TO MONITOR PT THROUGHOUT THE SHIFT.
[2022-05-22 20:00] VITALS: BP 114/66
--- NOTE | 2022-05-22 22:00 | NUR ---
MS RN NOTE HS ACCU-CHECK, BLOOD SUGAR IS 83. PROVIDED PATIENT APPLE JUICE X 2, PUDDING X 2 (PATIENT REQUESTED) ; EDUCATED PATIENT THAT HER BLOOD SUGAR IS LOW, AND SHE NEEDED TO DRINK THE APPLE JUICE AND EAT SOME PUDDING. PATIENT VERBALIZED UNDERSTANDING, AND STATED THAT SHE WAS GOING TO DRINK THE APPLE JUICE AND EAT THE PUDDING THROUGHOUT THE NIGHT TO MAINTAIN HER BLOOD SUGAR LEVEL.
[2022-05-22] MEDS: INSULIN GLARGINE, 100 UNIT/ML CARTRIDGE SQ SCH (22:10)
[2022-05-23] MEDS: *INSULIN REGULAR(HUMULIN R)HUM 100 UNIT/ML VIAL SQ PRN (06:49)
--- NOTE | 2022-05-23 07:05 | NUR ---
MS RN CLOSING NOTE PATIENT IS SITTING IN BED. SHE IS AO X 4. ABLE TO MAKE NEEDS KNOWN. SHE IS ON RA, BREATHING EVENLY, NONLABORED. NO S/S OF SOB OR DISTRESS. NO C/O PAIN . IV ACCESS ONE IS AT HER LEFT HAND, #22G, AND ANOTHER ONE IS AT HER LEFT UA MID LINE, #18G. FLUSHED WITH NS. ALL PATENT AND INTACT. RIGHT UPPER CHEST IS PERMACATH; DRESSING C/D/I. SAFETY PRECAUTIONS IMPLEMENTED: CALL LIGHT AND TABLE WITHIN REACH, SIDE RAILS UP X 2, BED IN LOWEST AND LOCKED POSITION. WILL ENDORSE THE NEXT SHIFT NURSE FOR CONTINUING CARE OF THE PATIENT.
--- NOTE | 2022-05-23 07:20 | NUR ---
MS RN OPENING NOTE PT IN SEMIFOWLERS POSITION. ALERT AND ORIENTED X4. VERBALLY RESPONSIVE AND ABLE TO MAKE NEEDS KNOWN. ON ROOM AIR.NO COMPLAINTS OF PAIN OR DISCOMFORT AT THIS TIME. PT HAS IV ACCESS ON LFT HAND AND MIDLINE. IV INTACT, PATENT AND FLUSHING WELL. PT HAS R UPPER CHEST PERMACATH. ALL SAFETY MEASURES IN PLACE. BED LOCKED AT LOWEST POSITION. SIDE RAILS UP X2. BEDSIDE TABLE WITHIN REACH.
[2022-05-23 07:31] LABS: BASOPHILS % (AUTO) 0.8 % (0.0-2.0); EOSINOPHILS % (AUTO) 0.3 % (0.0-6.0); HEMATOCRIT 33 % (33-45); HEMOGLOBIN 10.2 g/dL (11.5-14.8); LYMPHOCYTES # (AUTO) 0.5 K/uL (0.8-4.8); LYMPHOCYTES % (AUTO) 10.2 % (20.0-44.0); MEAN CORPUSCULAR HGB CONC 31 g/dl (31.0-36.0); MEAN CORPUSCULAR VOLUME 91 fL (82-100); MONOCYTES # (AUTO) 0.9 K/uL (0.1-1.30); MONOCYTES % (AUTO) 20.2 % (2.0-12.0); NEUTROPHILS # (AUTO) 3.2 K/uL (1.8-8.9); NEUTROPHILS % (AUTO) 68.5 % (43.0-81.0); PLATELET COUNT (AUTO) 159 K/uL (150-450); RED BLOOD CELL COUNT(AUTO) 3.67 MIL/uL (4.0-5.2); WHITE BLOOD COUNT (AUTO) 4.6 K/uL (4.3-11.0)
[2022-05-23] MEDS: BLOOD SUGAR DIAGNOSTIC 1 EACH STRIP VI SCH ×4 (07:32→22:07)
[2022-05-23 08:00] VITALS: BP 105/44
[2022-05-23 08:02] LABS: MAGNESIUM 2.3 mg/dL (1.8-2.4); PHOSPHORUS 3.8 mg/dL (2.5-4.9); POTASSIUM 4.8 mmol/L (3.5-5.1)
[2022-05-23] MEDS: ASPIRIN EC 81 MG TABLET.DR PO SCH (08:17)
[2022-05-23] MEDS: PANTOPRAZOLE 40 MG TABLET.DR PO SCH (08:17)
[2022-05-23] MEDS: BISACODYL (5 MG) 5 MG TABLET.DR PO SCH (08:17)
[2022-05-23] MEDS: CLOTRIMAZOLE 1% 15 GM TUBE TP SCH ×2 (08:17→16:23)
[2022-05-23] MEDS: INSULIN REGULAR, HUMAN 100 UNIT/ML 3 ML VIAL SQ PRN ×2 (08:19→22:19)
[2022-05-23 13:34] LABS: LYMPHOCYTES % (MANUAL) 13 % (16-48); MONOCYTES % (MANUAL) 17 % (0-11.0); NEUTROPHILS % (MANUAL) 70 (42-76)
[2022-05-23 16:00] VITALS: BP 117/54
--- NOTE | 2022-05-23 19:00 | NUR ---
MS RN OPENING NOTE PATIENT IS SITTING IN BED. SHE IS AWAKE, ALERT AND ORIENTED X 4. SHE IS ON RA, BREATHING EVENLY, NONLABORED. NO S/S OF SOB OR DISTRESS. NO C/O PAIN . IV ACCESS ONE IS AT HER LEFT HAND, #22G, AND ANOTHER ONE IS AT HER LEFT UA MID LINE, #18G. FLUSHED WITH NS. ALL are PATENT AND INTACT. RIGHT UPPER CHEST IS PERMACATH FOR HD; DRESSING C/D/I. SAFETY PRECAUTIONS IMPLEMENTED: CALL LIGHT AND TABLE WITHIN REACH, SIDE RAILS UP X 2, BED IN LOWEST AND LOCKED POSITION. SNACKS PROVIDED PER PATIENT REQUEST. WILL CONTINUE MONITORING THE PT'S CONDITION THROUGHOUT THE SHIFT.
--- NOTE | 2022-05-23 19:49 | NUR ---
MS RN CLOSING NOTE PT IN SEMIFOWLERS POSITION. ALERT AND ORIENTED X4. VERBALLY RESPONSIVE AND ABLE TO MAKE NEEDS KNOWN. ON ROOM AIR.NO COMPLAINTS OF PAIN OR DISCOMFORT AT THIS TIME. PT HAS IV ACCESS ON LFT HAND AND MIDLINE. IV INTACT, PATENT AND FLUSHING WELL. PT HAS R UPPER CHEST PERMACATH. ALL SAFETY MEASURES IN PLACE. BED LOCKED AT LOWEST POSITION. SIDE RAILS UP X2. BEDSIDE TABLE WITHIN REACH. ENDORSED TO DECORATING SUPERVISOR RN FOR CONTINUITY OF CARE
[2022-05-23 20:00] VITALS: BP 120/69
[2022-05-23] MEDS: INSULIN GLARGINE, 100 UNIT/ML CARTRIDGE SQ SCH (22:17)
[2022-05-24 02:00] VITALS: BP 111/63
--- NOTE | 2022-05-24 02:24 | NUR ---
MS RN NOTE PATIENT COMPLAINED OF HAVING HEADACHE. TYLENOL 650 MG PO PRN MEDICATION WAS GIVEN FOR HEADACHE AND ELEVATED BODY TEMPERATURE.
--- NOTE | 2022-05-24 02:26 | NUR ---
MS RN NOTE PATIENT COMPLAIN OF HAVING HEADACHE, VITAL SIGNS WERE TAKEN: BP IS 111/63, TEMPERATURE IS 100.2 F ORALLY; HR IS 79, AND O2 SAT IS 94% UNDER RA. TEXT MD AND RECEIVED THE ORDER FOR 650 MG OF TYLENOL. WILL CONTINUE MONITOR PATIENT'S CONDITION. CHARGE NURSE, ELIZABETH, NOTIFIED.
[2022-05-24] MEDS ORDERED: ACETAMINOPHEN 325 MG TABLET PO PRN (02:30)
[2022-05-24 06:10] LABS: BASOPHILS % (AUTO) 0.7 % (0.0-2.0); EOSINOPHILS % (AUTO) 0.7 % (0.0-6.0); HEMATOCRIT 32 % (33-45); HEMOGLOBIN 10.2 g/dL (11.5-14.8); LYMPHOCYTES # (AUTO) 0.5 K/uL (0.8-4.8); LYMPHOCYTES % (AUTO) 9.6 % (20.0-44.0); MEAN CORPUSCULAR HGB CONC 32 g/dl (31.0-36.0); MEAN CORPUSCULAR VOLUME 89 fL (82-100); MONOCYTES # (AUTO) 1.2 K/uL (0.1-1.30); MONOCYTES % (AUTO) 22.1 % (2.0-12.0); NEUTROPHILS # (AUTO) 3.7 K/uL (1.8-8.9); NEUTROPHILS % (AUTO) 66.9 % (43.0-81.0); PLATELET COUNT (AUTO) 171 K/uL (150-450); RED BLOOD CELL COUNT(AUTO) 3.61 MIL/uL (4.0-5.2); WHITE BLOOD COUNT (AUTO) 5.5 K/uL (4.3-11.0)
[2022-05-24 06:18] LABS: CALCIUM, SERUM 9.2 mg/dL (8.5-10.1); CREATININE 2.8 mg/dL (0.6-1.3); MAGNESIUM 2.2 mg/dL (1.8-2.4); PHOSPHORUS 3.6 mg/dL (2.5-4.9); POTASSIUM 4.3 mmol/L (3.5-5.1)
[2022-05-24] MEDS: BLOOD SUGAR DIAGNOSTIC 1 EACH STRIP VI SCH ×2 (06:35→12:04)
--- NOTE | 2022-05-24 06:53 | NUR ---
MS RN CLOSING NOTE PATIENT IS SLEEPING IN BED. EASILY BEING AROUSED. SHE IS AO X 4. ABLE TO MAKE NEEDS KNOWN. SHE IS ON RA, BREATHING EVENLY, NONLABORED. NO S/S OF SOB OR DISTRESS. DURING THE NIGHT AT ABOUT 0200, PATIENT HAS HEADACHE AND ELEVATED BODY TEMPERATURE TO 100.2. PRN TYLENOL WAS GIVEN TO THE PATIENT. CURRENTLY, NO C/O PAIN . IV ACCESS ONE IS AT HER LEFT HAND, #22G, AND ANOTHER ONE IS AT HER LEFT UA MID LINE, #18G. FLUSHED WITH NS. ALL PATENT AND INTACT. MORNING BS WAS 94, APPLE JUICE PROVIDED. RIGHT UPPER CHEST IS PERMACATH; DRESSING C/D/I. SAFETY PRECAUTIONS IMPLEMENTED: CALL LIGHT AND TABLE WITHIN REACH, SIDE RAILS UP X 2, BED IN LOWEST AND LOCKED POSITION. WILL ENDORSE THE NEXT SHIFT NURSE FOR CONTINUING CARE OF THE PATIENT.
--- NOTE | 2022-05-24 07:00 | NUR ---
MS RN OPENING NOTES: RECEIVED PATIENT IN BED AWAKE, ALERT AND ORIENTED X 4 NO SOB OR CARDIAC DISTRESS NOTED, DENIES PAIN AT THIS TIME. IV ACCESS ON VERONA MIDLINE GAUGE 18, L HAND GAUGE 22 PATENT, INTACT AND SL. RUC PERMA CATH PATENT AND DRY DRESSING IN PLACE. SAFETY MEASURES MAINTAINED: BED LOCKED AND IN LOWEST POSITION, SIDE RAILS UP X 2, CALL LIGHT AND BED SIDE TABLE IN EASY REACH AND WILL MONITOR PT ACCORDINGLY.
[2022-05-24] MEDS: PANTOPRAZOLE 40 MG TABLET.DR PO SCH (07:29)
[2022-05-24 08:00] VITALS: BP 106/62
[2022-05-24 08:26] LABS: BAND % (MANUAL) 2 % (0.0-5.0); LYMPHOCYTES % (MANUAL) 11 % (16-48); MONOCYTES % (MANUAL) 20 % (0-11.0); NEUTROPHILS % (MANUAL) 67 (42-76)
[2022-05-24] MEDS: ASPIRIN EC 81 MG TABLET.DR PO SCH (08:32)
[2022-05-24] MEDS: CLOTRIMAZOLE 1% 15 GM TUBE TP SCH (08:32)
[2022-05-24] MEDS: BISACODYL (5 MG) 5 MG TABLET.DR PO SCH (08:32)
--- NOTE | 2022-05-24 11:30 | NUR ---
MS RN NOTE MIDSHIFT REPORT RECEIVED FROM CINDI HARMAN FOR CONTINUITY OF CARE. IN STABLE CONDITION.
[2022-05-24] MEDS ORDERED: MIDO5TAB4 PO (12:33)
--- NOTE | 2022-05-24 14:00 | NUR ---
MS RN NOTE WITH MD ORDER FOR DISCHARGE. HEALTH TEACHINGS DONE REGARDING DISCHARGE ORDERS AND VERBALIZED UNDERSTANDING AND APPRECIATION. COMFORT MEASURES PROVIDED. NOT IN DISTRESS. IN STABLE CONDITION.
[2022-05-24 16:00] VITALS: BP 113/49
--- NOTE | 2022-05-24 17:15 | NUR ---
MS RN NOTE PATIENT DISCHARGED ORDERED. PATIENT PICKED UP BY DAUGHTER MARITZA IN STABLE CONDITION. IV ACCESS REMOVED AND COVERED WITH DRY DRESSING. PROCEDURE TOLERATED WELL. REINFORCED HEALTH TEACHINGS TOGETHER WITH DAUGHTER. VERBALIZED UNDERSTANDING AND APPRECIATION. PATIENT ACCOMPANIED TO LOBBY ON A WHEELCHAIR. IN STABLE CONDITION. ENDORSED ACCORDINGLY.
== END 2022-05-24 18:11 | disposition home or self-care (01) | DRG 291 ==
LOC: ER 15:38 → ICU 19:51 → MED 05-15 11:25
PROVIDERS: ADMIT Student in an Organized Health Care Education/Training Program; ATTEND Internal Medicine
PROC: 5A1D70Z Performance of Urinary Filtration, Intermittent, Less than 6 Hours Per Day (ICD-10-PCS; 2022-05-11)
PROC: 05HM33Z Insertion of Infusion Device into Right Internal Jugular Vein, Percutaneous Approach (ICD-10-PCS; principal; 2022-05-12)
PROC: B543ZZA Ultrasonography of Right Jugular Veins, Guidance (ICD-10-PCS; 2022-05-12)
PROC: 0JH63XZ Insertion of Tunneled Vascular Access Device into Chest Subcutaneous Tissue and Fascia, Percutaneous Approach (ICD-10-PCS; 2022-05-19)
PROC: 05HM33Z Insertion of Infusion Device into Right Internal Jugular Vein, Percutaneous Approach (ICD-10-PCS; 2022-05-19)
PROC: B513YZA Fluoroscopy of Right Jugular Veins using Other Contrast, Guidance (ICD-10-PCS; 2022-05-19)
PROC: 05HC33Z Insertion of Infusion Device into Left Basilic Vein, Percutaneous Approach (ICD-10-PCS; 2022-05-24)
DX: I13.0 Hypertensive heart and chronic kidney disease with heart failure and stage 1 through stage 4 chronic kidney disease, or unspecified chronic kidney disease (principal); I50.43 Acute on chronic combined systolic (congestive) and diastolic (congestive) heart failure; N17.0 Acute kidney failure with tubular necrosis; E87.1 Hypo-osmolality and hyponatremia; R18.8 Other ascites; E87.5 Hyperkalemia; I42.0 Dilated cardiomyopathy; N18.9 Chronic kidney disease, unspecified; Z20.822 Contact with and (suspected) exposure to COVID-19; E78.5 Hyperlipidemia, unspecified; J44.9 Chronic obstructive pulmonary disease, unspecified; E11.22 Type 2 diabetes mellitus with diabetic chronic kidney disease; L40.9 Psoriasis, unspecified; Z99.2 Dependence on renal dialysis; Z95.810 Presence of automatic (implantable) cardiac defibrillator; Z83.3 Family history of diabetes mellitus; Z98.891 History of uterine scar from previous surgery; Z98.51 Tubal ligation status; Z79.82 Long term (current) use of aspirin; Z79.84 Long term (current) use of oral hypoglycemic drugs; Z79.899 Other long term (current) drug therapy; R74.01 Elevation of levels of liver transaminase levels; K80.20 Calculus of gallbladder without cholecystitis without obstruction; K74.60 Unspecified cirrhosis of liver; Z79.4 Long term (current) use of insulin; D25.9 Leiomyoma of uterus, unspecified; F31.9 Bipolar disorder, unspecified; I95.9 Hypotension, unspecified
CPT/HCPCS: 36410; 36415; 71045-TC; 76705-TC; 76770-TC; 76942-TC; 80048-TC; 80053-TC; 80076-TC; 82962-TC; 83690-TC; 83735-TC; 84100-TC; 84443-TC; 85025-TC; 85610-TC; 85730-TC; 86704; 86705; 86706; 86803; 87081-TC; 87340; 90935-TC; 93307-TC; 97116-TC; 97530-TC; A4216; C1750; C1757; C1769; C1894; C9803; G0378; J0690; J1644; J1815; J2250; J2405; J3010; J3490; J7030; J7050; J7060; J7070; P9047; Q9966

== ENCOUNTER 2023-01-20 08:34 | Inpatient (IN) | payer MEDICARE, OTHER ==
[~2023-01-20] VITALS: Ht 154.9 cm; Wt 70.3 kg
[~2023-01-20 08:34] MED LIST changes: +ALBU2.5V13 IH; +ALLO300T2 PO; -CARV25TA PO; -CLON0.3P TD; -ERGO500014 PO; -FURO-144 PO; -FURO-145 PO; +INSU100V27 SQ; +INSU100V7 SQ; -ISOS30TA PO; -METO2.5T2 PO; +MIDO5TAB4 PO; +SACU1TAB PO; -SPIR25TA PO
[2023-01-20 09:24] LABS: BASOPHILS % (AUTO) 0.7 % (0.0-2.0); EOSINOPHILS % (AUTO) 0.4 % (0.0-6.0); HEMATOCRIT 44 % (33-45); HEMOGLOBIN 13.7 g/dL (11.5-14.8); LYMPHOCYTES # (AUTO) 0.3 K/uL (0.8-4.8); LYMPHOCYTES % (AUTO) 6.6 % (20.0-44.0); MEAN CORPUSCULAR HEMOGLOBIN 33 PG (26.0-33.0); MEAN CORPUSCULAR HGB CONC 31 g/dl (31.0-36.0); MEAN CORPUSCULAR VOLUME 105 fL (82-100); MONOCYTES # (AUTO) 0.5 K/uL (0.1-1.30); MONOCYTES % (AUTO) 10.9 % (2.0-12.0); NEUTROPHILS # (AUTO) 3.8 K/uL (1.8-8.9); NEUTROPHILS % (AUTO) 81.4 % (43.0-81.0); PLATELET COUNT (AUTO) 167 K/uL (150-450); RED BLOOD CELL COUNT(AUTO) 4.16 MIL/uL (4.0-5.2); RED CELL DISTRIBUTION WIDTH 20.1 % (11.5-15.0); WHITE BLOOD COUNT (AUTO) 4.7 K/uL (4.3-11.0)
[2023-01-20] MEDS ORDERED: ALBU18HF2 IH (09:48)
[2023-01-20] MEDS ORDERED: AMIO200T5 PO (09:48)
[2023-01-20] MEDS ORDERED: DOCU250C14 PO (09:48)
[2023-01-20] MEDS ORDERED: METO2.5T2 PO (09:48)
[2023-01-20] MEDS ORDERED: FERR324T PO (09:48)
[2023-01-20] MEDS ORDERED: CARV12.52 PO (09:48)
[2023-01-20] MEDS ORDERED: ACET-73 PO (09:48)
[2023-01-20] MEDS ORDERED: ISOS30TA86 PO (09:48)
[2023-01-20] MEDS ORDERED: MEXI200C PO (09:48)
[2023-01-20] MEDS ORDERED: COLC0.6C PO (09:49)
[2023-01-20 10:16] LABS: CALCIUM, SERUM 10.5 mg/dL (8.5-10.1); CARBON DIOXIDE 18 mmol/L (21-32); CHLORIDE 100 mmol/L (98-107); CREATININE 7.1 mg/dL (0.6-1.3); GLUCOSE 77 mg/dL (74-106); POTASSIUM 5.9 mmol/L (3.5-5.1); SODIUM SERUM 137 mmol/L (136-145); UREA NITROGEN, BLOOD 63 mg/dL (7-18)
[2023-01-20 10:28] LABS: ALANINE AMINOTRANSFERASE 20 U/L (12-78); ALBUMIN 3.2 g/dL (3.4-5.0); ALKALINE PHOSPHATASE 145 U/L (46-116); ASPARTATE AMINOTRANSFERASE 18 U/L (15-37); BILIRUBIN,DIRECT 0.7 mg/dL (0.0-0.2); BILIRUBIN,TOTAL 1.2 mg/dL (0.2-1.0); LIPASE 117 U/L (73-393); NT-PRO BNP > 25000 pg/mL (0-125); TOTAL PROTEIN, SERUM 7.7 g/dL (6.4-8.2)
[2023-01-20] MEDS ORDERED: SODIUM BICARBONATE SYR 50 MEQ/50 ML DISP.SYRIN IV ONE (11:00)
[2023-01-20] MEDS ORDERED: FUROSEMIDE 40 MG/4 ML VIAL IV ONE (11:00)
[2023-01-20] MEDS ORDERED: SODIUM POLYSTYRENE SULFONATE 15 G/60 ML BOTTLE PO ONE (11:00)
[2023-01-20] MEDS ORDERED: FUROSEMIDE 40 MG/4 ML VIAL ONE (11:26)
[2023-01-20] MEDS ORDERED: SODIUM POLYSTYRENE SULFONATE 15 G/60 ML BOTTLE ONE (11:26)
[2023-01-20] MEDS ORDERED: SODIUM BICARBONATE SYR 50 MEQ/50 ML DISP.SYRIN ONE (11:27)
[2023-01-20] MEDS ORDERED: INSULIN REGULAR, HUMAN 100 UNIT/ML 3 ML VIAL SQ PRN (14:00)
[2023-01-20] MEDS ORDERED: DEXTROSE 50%-WATER 50 ML DISP.SYRIN IV PRN (14:00)
[2023-01-20] MEDS ORDERED: MAGNESIUM HYDROXIDE 30 ML UDC PO PRN (15:00)
[2023-01-20] MEDS ORDERED: ALBUTEROL FS 2.5 MG/0.5 ML VIAL.NEB IH PRN (15:00)
[2023-01-20] MEDS ORDERED: ACETAMINOPHEN ES 500 MG TABLET PO PRN (15:00)
[2023-01-20] MEDS ORDERED: MAG HYDROX/AL HYDROX/SIMETH 30 ML UDC PO PRN (15:00)
[2023-01-20] MEDS ORDERED: MIDODRINE HCL (5MG) 5 MG TABLET PO PRN (15:00)
[2023-01-20] MEDS ORDERED: ONDANSETRON HCL/PF 4 MG/2 ML VIAL IVP PRN (15:00)
[2023-01-20] MEDS ORDERED: Z GUARD REMEDY 4 OZ OINT TP PRN (15:00)
[2023-01-20 16:00] VITALS: BP 104/62; TEMP 97.4; O2SAT 99
[2023-01-20] MEDS: SACUBITRIL/VALSARTAN 1 EACH TABLET PO SCH (16:57)
[2023-01-20] MEDS: FERROUS SULFATE (325 MG) 325 MG/TAB TABLET PO SCH (16:57)
[2023-01-20] MEDS: DOCUSATE SODIUM 250 MG CAPSULE PO SCH (16:57)
[2023-01-20] MEDS ORDERED: ALBUMIN 25% 25 GM in PREMIX 1 EA IV ONE (17:00)
[2023-01-20] MEDS: BLOOD SUGAR DIAGNOSTIC 1 EACH STRIP IN SCH (17:07)
[2023-01-20 20:00] VITALS: BP 96/52; TEMP 97.9; O2SAT 95
[2023-01-20] MEDS: CARVEDILOL 12.5 MG TABLET PO SCH (21:00)
[2023-01-21] VITALS (7 sets, daily range): BP systolic 90–107; BP diastolic 49–64; TEMP 97.4–97.8; O2SAT 95–100
[2023-01-21] MEDS: BLOOD SUGAR DIAGNOSTIC 1 EACH STRIP IN SCH ×6 (00:52→22:56)
[2023-01-21] MEDS ORDERED: DEXTROSE 50%-WATER 50 ML DISP.SYRIN IV PRN (01:00)
[2023-01-21 05:59] LABS: BASOPHILS % (AUTO) 0.2 % (0.0-2.0); EOSINOPHILS % (AUTO) 0.5 % (0.0-6.0); HEMATOCRIT 38 % (33-45); HEMOGLOBIN 12.1 g/dL (11.5-14.8); LYMPHOCYTES # (AUTO) 0.1 K/uL (0.8-4.8); LYMPHOCYTES % (AUTO) 2.2 % (20.0-44.0); MEAN CORPUSCULAR HEMOGLOBIN 33 PG (26.0-33.0); MEAN CORPUSCULAR HGB CONC 32 g/dl (31.0-36.0); MEAN CORPUSCULAR VOLUME 104 fL (82-100); MONOCYTES # (AUTO) 0.4 K/uL (0.1-1.30); MONOCYTES % (AUTO) 8.4 % (2.0-12.0); NEUTROPHILS # (AUTO) 3.9 K/uL (1.8-8.9); NEUTROPHILS % (AUTO) 88.7 % (43.0-81.0); PLATELET COUNT (AUTO) 115 K/uL (150-450); RED BLOOD CELL COUNT(AUTO) 3.69 MIL/uL (4.0-5.2); RED CELL DISTRIBUTION WIDTH 18.9 % (11.5-15.0); WHITE BLOOD COUNT (AUTO) 4.4 K/uL (4.3-11.0)
[2023-01-21 06:18] LABS: CALCIUM, SERUM 9.5 mg/dL (8.5-10.1); CREATININE 5.4 mg/dL (0.6-1.3); MAGNESIUM 2.5 mg/dL (1.8-2.4); PHOSPHORUS 5.6 mg/dL (2.5-4.9); POTASSIUM 3.6 mmol/L (3.5-5.1)
[2023-01-21] MEDS: PANTOPRAZOLE 40 MG TABLET.DR PO SCH (07:50)
[2023-01-21] MEDS: ACETAMINOPHEN 325 MG TABLET PO PRN ×3 (07:59→19:51)
[2023-01-21] MEDS: CARVEDILOL 12.5 MG TABLET PO SCH ×2 (09:00→21:00)
[2023-01-21] MEDS: AMIODARONE HCL 200 MG TABLET PO SCH (09:00)
[2023-01-21] MEDS: METOLAZONE 2.5 MG TABLET PO SCH (09:04)
[2023-01-21] MEDS: SACUBITRIL/VALSARTAN 1 EACH TABLET PO SCH ×2 (09:04→17:44)
[2023-01-21] MEDS: ALLOPURINOL 100 MG TABLET PO SCH (09:04)
[2023-01-21] MEDS: FERROUS SULFATE (325 MG) 325 MG/TAB TABLET PO SCH ×2 (09:05→17:44)
[2023-01-21] MEDS: ISOSORBIDE MONONITRATE (30MG) 30 MG TAB.SR.24H PO SCH (09:05)
[2023-01-21] MEDS: ASPIRIN EC 81 MG TABLET.DR PO SCH (09:05)
[2023-01-21] MEDS: DOCUSATE SODIUM 250 MG CAPSULE PO SCH ×2 (09:05→17:44)
[2023-01-21] MEDS: INSULIN REGULAR, HUMAN 100 UNIT/ML 3 ML VIAL SQ PRN ×3 (12:32→22:59)
[2023-01-21] MEDS: DIVALPROEX SODIUM 125 MG TABLET.DR PO SCH ×2 (12:35→17:44)
[2023-01-21] MEDS: risperiDONE 0.25 MG TABLET PO SCH (17:44)
[2023-01-21] MEDS ORDERED: ALBUMIN 25% 25 GM in PREMIX 1 EA IV ONE (20:00)
[2023-01-21] MEDS: MIDODRINE HCL (5MG) 5 MG TABLET PO SCH (21:21)
[2023-01-22] VITALS: BP 93/48; TEMP 97.9; O2SAT 100
[2023-01-22 04:00] VITALS: BP 90/48; TEMP 98; O2SAT 100
[2023-01-22 05:11] LABS: BASOPHILS % (AUTO) 0.4 % (0.0-2.0); EOSINOPHILS % (AUTO) 1.1 % (0.0-6.0); HEMATOCRIT 35 % (33-45); HEMOGLOBIN 11.2 g/dL (11.5-14.8); LYMPHOCYTES # (AUTO) 0.1 K/uL (0.8-4.8); LYMPHOCYTES % (AUTO) 3.3 % (20.0-44.0); MEAN CORPUSCULAR HEMOGLOBIN 33 PG (26.0-33.0); MEAN CORPUSCULAR HGB CONC 32 g/dl (31.0-36.0); MEAN CORPUSCULAR VOLUME 103 fL (82-100); MONOCYTES # (AUTO) 0.6 K/uL (0.1-1.30); MONOCYTES % (AUTO) 13.8 % (2.0-12.0); NEUTROPHILS # (AUTO) 3.5 K/uL (1.8-8.9); NEUTROPHILS % (AUTO) 81.4 % (43.0-81.0); PLATELET COUNT (AUTO) 97 K/uL (150-450); RED BLOOD CELL COUNT(AUTO) 3.42 MIL/uL (4.0-5.2); RED CELL DISTRIBUTION WIDTH 18.7 % (11.5-15.0); WHITE BLOOD COUNT (AUTO) 4.3 K/uL (4.3-11.0)
[2023-01-22 06:04] LABS: ALBUMIN 2.9 g/dL (3.4-5.0); BILIRUBIN,TOTAL 0.9 mg/dL (0.2-1.0); CALCIUM, SERUM 8.9 mg/dL (8.5-10.1); CREATININE 5.3 mg/dL (0.6-1.3); MAGNESIUM 2.1 mg/dL (1.8-2.4); PHOSPHORUS 4.9 mg/dL (2.5-4.9); POTASSIUM 3.6 mmol/L (3.5-5.1); TOTAL PROTEIN, SERUM 6.1 g/dL (6.4-8.2)
[2023-01-22 06:16] LABS: THYROID STIMULATING HORMONE 4.708 uIU/mL (0.358-3.74); URIC ACID 6.1 mg/dL (2.6-7.2)
[2023-01-22 08:00] VITALS: BP 101/52; TEMP 97.6; O2SAT 97
[2023-01-22] MEDS: BLOOD SUGAR DIAGNOSTIC 1 EACH STRIP IN SCH ×2 (08:05→11:06)
[2023-01-22] MEDS: MIDODRINE HCL (5MG) 5 MG TABLET PO SCH ×2 (08:06→12:18)
[2023-01-22] MEDS: ISOSORBIDE MONONITRATE (30MG) 30 MG TAB.SR.24H PO SCH (09:00)
[2023-01-22] MEDS: CARVEDILOL 12.5 MG TABLET PO SCH (09:00)
[2023-01-22] MEDS: risperiDONE 0.25 MG TABLET PO SCH (09:26)
[2023-01-22] MEDS: ASPIRIN EC 81 MG TABLET.DR PO SCH (09:26)
[2023-01-22] MEDS: DIVALPROEX SODIUM 125 MG TABLET.DR PO SCH ×2 (09:27→12:18)
[2023-01-22] MEDS: DOCUSATE SODIUM 250 MG CAPSULE PO SCH (09:27)
[2023-01-22] MEDS: FERROUS SULFATE (325 MG) 325 MG/TAB TABLET PO SCH (09:27)
[2023-01-22] MEDS: PANTOPRAZOLE 40 MG TABLET.DR PO SCH (09:27)
[2023-01-22] MEDS: ALLOPURINOL 100 MG TABLET PO SCH (09:27)
[2023-01-22] MEDS: AMIODARONE HCL 200 MG TABLET PO SCH (09:28)
[2023-01-22] MEDS: METOLAZONE 2.5 MG TABLET PO SCH (09:29)
[2023-01-22] MEDS: SACUBITRIL/VALSARTAN 1 EACH TABLET PO SCH (10:33)
[2023-01-22 12:00] VITALS: BP 97/52; TEMP 97.7; O2SAT 99
[2023-01-22 12:18] VITALS: BP 97/52
[2023-01-25 07:07] LABS: PTH, INTACT 660 pg/mL (15-65)
[2023-01-25 08:07] LABS: *SPE A/G RATIO 1.1 (0.7-1.7); *SPE ALBUMIN 2.9 g/dL (2.9-4.4); *SPE ALPHA-1-GLOBULIN 0.3 g/dL (0.0-0.4); *SPE ALPHA-2-GLOBULIN 0.4 g/dL (0.4-1.0); *SPE BETA GLOBULIN 0.7 g/dL (0.7-1.3); *SPE GLOBULIN, TOTAL 2.6 g/dL (2.2-3.9); *SPE M-SPIKE Not Observed g/dL (Not Observed); *SPE PROTEIN TOTAL 5.5 g/dL (6.0-8.5); *SPEGAMMA GLOBULIN 1.2 g/dL (0.4-1.8)
== END 2023-01-22 15:40 | disposition home or self-care (01) | DRG 291 ==
LOC: ER 08:58 → TELE1 10:59
PROVIDERS: ADMIT Internal Medicine; ATTEND Nurse Practitioner Acute Care
PROC: 5A1D70Z Performance of Urinary Filtration, Intermittent, Less than 6 Hours Per Day (ICD-10-PCS; principal; 2023-01-20)
PROC: 05HC33Z Insertion of Infusion Device into Left Basilic Vein, Percutaneous Approach (ICD-10-PCS; 2023-01-22)
DX: I13.2 Hypertensive heart and chronic kidney disease with heart failure and with stage 5 chronic kidney disease, or end stage renal disease (principal); E43 Unspecified severe protein-calorie malnutrition; I50.23 Acute on chronic systolic (congestive) heart failure; N18.6 End stage renal disease; E87.5 Hyperkalemia; E11.22 Type 2 diabetes mellitus with diabetic chronic kidney disease; J44.9 Chronic obstructive pulmonary disease, unspecified; G90.8 Other disorders of autonomic nervous system; M10.9 Gout, unspecified; E78.00 Pure hypercholesterolemia, unspecified; Z95.0 Presence of cardiac pacemaker; Z99.2 Dependence on renal dialysis; L40.9 Psoriasis, unspecified; Z98.51 Tubal ligation status; Z98.891 History of uterine scar from previous surgery; Z79.51 Long term (current) use of inhaled steroids; Z79.4 Long term (current) use of insulin; Z79.82 Long term (current) use of aspirin; Z79.899 Other long term (current) drug therapy; Z79.84 Long term (current) use of oral hypoglycemic drugs; Z83.3 Family history of diabetes mellitus; F31.9 Bipolar disorder, unspecified; E88.09 Other disorders of plasma-protein metabolism, not elsewhere classified; D63.8 Anemia in other chronic diseases classified elsewhere; K76.9 Liver disease, unspecified; K59.00 Constipation, unspecified; N25.0 Renal osteodystrophy; E83.52 Hypercalcemia
CPT/HCPCS: 36415; 71045-TC; 80048-TC; 80053-TC; 80076-TC; 82550-TC; 82962-TC; 83690-TC; 83735-TC; 83880; 83970; 84100-TC; 84155; 84165; 84443-TC; 84484-TC; 84550-TC; 85025-TC; 90935-TC; A4216; G0378; J1815; J1940; J3490; J7030; P9047

== ENCOUNTER 2023-02-01 09:59 | Inpatient (IN) | payer MEDICARE, OTHER ==
[~2023-02-01] VITALS: Ht 154.9 cm; Wt 74.4 kg
[~2023-02-01 09:59] MED LIST changes: +ACET-73 PO; +ALBU18HF2 IH; +AMIO200T5 PO; +CARV12.52 PO; +COLC0.6C PO; +DOCU250C14 PO; +FERR324T PO; -INSU100V7 SQ; +ISOS30TA86 PO; +METO2.5T2 PO; +MEXI200C PO; -VALS80TA2 PO
[2023-02-01] MEDS ORDERED: ONDANSETRON HCL/PF - ER 4 MG/2 ML VIAL IV ONE (11:30)
[2023-02-01 11:35] LABS: BASOPHILS # (AUTO) 0.1 K/uL (0.0-0.2); BASOPHILS % (AUTO) 1.5 % (0.0-2.0); EOSINOPHILS % (AUTO) 0.9 % (0.0-6.0); HEMATOCRIT 39 % (33-45); HEMOGLOBIN 12.3 g/dL (11.5-14.8); LYMPHOCYTES # (AUTO) 0.2 K/uL (0.8-4.8); MEAN CORPUSCULAR HEMOGLOBIN 33 PG (26.0-33.0); MEAN CORPUSCULAR HGB CONC 32 g/dl (31.0-36.0); MEAN CORPUSCULAR VOLUME 104 fL (82-100); MONOCYTES # (AUTO) 0.5 K/uL (0.1-1.30); MONOCYTES % (AUTO) 10.4 % (2.0-12.0); NEUTROPHILS # (AUTO) 3.8 K/uL (1.8-8.9); NEUTROPHILS % (AUTO) 83.2 % (43.0-81.0); PLATELET COUNT (AUTO) 205 K/uL (150-450); RED BLOOD CELL COUNT(AUTO) 3.77 MIL/uL (4.0-5.2); WHITE BLOOD COUNT (AUTO) 4.6 K/uL (4.3-11.0)
[2023-02-01] MEDS ORDERED: ONDANSETRON HCL/PF 4 MG/2 ML VIAL ONE (11:40)
[2023-02-01 11:50] LABS: MAGNESIUM 2.4 mg/dL (1.8-2.4); PHOSPHORUS 7.5 mg/dL (2.5-4.9)
[2023-02-01 11:53] LABS: CALCIUM, SERUM 8.7 mg/dL (8.5-10.1); CARBON DIOXIDE 20 mmol/L (21-32); CHLORIDE 101 mmol/L (98-107); GLUCOSE 117 mg/dL (74-106); SODIUM SERUM 138 mmol/L (136-145)
[2023-02-01 12:05] LABS: ALANINE AMINOTRANSFERASE 17 U/L (12-78); ALBUMIN 3.1 g/dL (3.4-5.0); ALKALINE PHOSPHATASE 172 U/L (46-116); ASPARTATE AMINOTRANSFERASE 30 U/L (15-37); BILIRUBIN,DIRECT 0.4 mg/dL (0.0-0.2); NT-PRO BNP > 25000 pg/mL (0-125); TOTAL PROTEIN, SERUM 7.8 g/dL (6.4-8.2)
[2023-02-01] MEDS ORDERED: MIDO5TAB4 PO (12:44)
[2023-02-01] MEDS ORDERED: ACETAMINOPHEN 325 MG TABLET PO PRN (13:00)
[2023-02-01] MEDS ORDERED: MAG HYDROX/AL HYDROX/SIMETH 30 ML UDC PO PRN (13:00)
[2023-02-01] MEDS ORDERED: MAGNESIUM HYDROXIDE 30 ML UDC PO PRN (13:00)
[2023-02-01] MEDS ORDERED: ONDANSETRON HCL/PF 4 MG/2 ML VIAL IVP PRN (13:00)
[2023-02-01] MEDS ORDERED: Z GUARD REMEDY 4 OZ OINT TP PRN (13:00)
[2023-02-01] MEDS ORDERED: DEXTROSE 50%-WATER 50 ML DISP.SYRIN IV PRN (13:00)
[2023-02-01 13:12] LABS: CREATININE 8.9 mg/dL (0.6-1.3); UREA NITROGEN, BLOOD 100 mg/dL (7-18)
[2023-02-01 13:13] LABS: POTASSIUM 4.4 mmol/L (3.5-5.1)
[2023-02-01 16:00] VITALS: BP 90/51; TEMP 97.7; O2SAT 100
[2023-02-01 16:24] VITALS: BP 92/56; TEMP 98.2; O2SAT 96
[2023-02-01 17:01] VITALS: BP 107/67; TEMP 97.7; O2SAT 99
[2023-02-01] MEDS: BLOOD SUGAR DIAGNOSTIC 1 EACH STRIP VI SCH ×2 (17:25→21:03)
[2023-02-01] MEDS ORDERED: MIDODRINE HCL (5MG) 5 MG TABLET PO PRN (18:00)
[2023-02-01 20:30] VITALS: BP 89/57; TEMP 97.5; O2SAT 98
[2023-02-01 20:55] VITALS: BP 92/53
[2023-02-01] MEDS: ALBUMIN 25% 25 GM in PREMIX 1 EA IV PRN (21:00)
[2023-02-01] MEDS: *INSULIN REGULAR(HUMULIN R)HUM 100 UNIT/ML VIAL SQ PRN (21:04)
[2023-02-02 00:52] VITALS: BP 94/62; TEMP 98.2; O2SAT 98
[2023-02-02 04:51] VITALS: BP 95/63; TEMP 97.9; O2SAT 100
[2023-02-02] MEDS: BLOOD SUGAR DIAGNOSTIC 1 EACH STRIP VI SCH ×4 (06:32→21:15)
[2023-02-02] MEDS: INSULIN REGULAR, HUMAN 100 UNIT/ML 3 ML VIAL SQ PRN ×3 (06:32→18:14)
[2023-02-02 07:08] LABS: BASOPHILS % (AUTO) 0.9 % (0.0-2.0); EOSINOPHILS # (AUTO) 0.1 K/uL (0.0-0.7); EOSINOPHILS % (AUTO) 1.5 % (0.0-6.0); HEMATOCRIT 37 % (33-45); HEMOGLOBIN 11.4 g/dL (11.5-14.8); LYMPHOCYTES # (AUTO) 0.3 K/uL (0.8-4.8); LYMPHOCYTES % (AUTO) 6.3 % (20.0-44.0); MEAN CORPUSCULAR HEMOGLOBIN 32 PG (26.0-33.0); MEAN CORPUSCULAR HGB CONC 31 g/dl (31.0-36.0); MEAN CORPUSCULAR VOLUME 103 fL (82-100); MONOCYTES # (AUTO) 0.4 K/uL (0.1-1.30); MONOCYTES % (AUTO) 8.6 % (2.0-12.0); NEUTROPHILS # (AUTO) 3.4 K/uL (1.8-8.9); NEUTROPHILS % (AUTO) 82.7 % (43.0-81.0); PLATELET COUNT (AUTO) 155 K/uL (150-450); RED BLOOD CELL COUNT(AUTO) 3.57 MIL/uL (4.0-5.2); RED CELL DISTRIBUTION WIDTH 17.8 % (11.5-15.0); WHITE BLOOD COUNT (AUTO) 4.1 K/uL (4.3-11.0)
[2023-02-02 07:25] LABS: CALCIUM, SERUM 8.4 mg/dL (8.5-10.1); CREATININE 6.3 mg/dL (0.6-1.3); MAGNESIUM 2.3 mg/dL (1.8-2.4); PHOSPHORUS 5.4 mg/dL (2.5-4.9); POTASSIUM 3.8 mmol/L (3.5-5.1)
[2023-02-02 08:00] VITALS: BP 108/58; TEMP 98.4; O2SAT 100
[2023-02-02 12:00] VITALS: BP_SYST 111; BP_SYST 128; BP_DIAS 61; BP_DIAS 78; TEMP 98.4; TEMP 98.6; O2SAT 98; O2SAT 99
[2023-02-02 16:00] VITALS: BP 135/90; TEMP 98.8; O2SAT 97
[2023-02-02 18:00] LABS: INR 1.31 (0.91-1.10); PARTIAL THROMBOPLASTIN TIME 36.5 SEC (24.3-34.3); PROTHROMBIN TIME 13.5 SECS (9.2-11.1)
[2023-02-02] MEDS: PROSOURCE / PROSTAT (PYXIS) 30 ML UDC PO SCH (18:13)
[2023-02-02] MEDS: ALBUMIN 25% 25 GM in PREMIX 1 EA IV PRN (19:50)
[2023-02-02 20:00] VITALS: BP 108/59; TEMP 98; O2SAT 99
[2023-02-02] MEDS: *INSULIN REGULAR(HUMULIN R)HUM 100 UNIT/ML VIAL SQ PRN (21:15)
[2023-02-03] VITALS: BP 95/51; TEMP 97.5; O2SAT 98
[2023-02-03 04:00] VITALS: BP 86/44; TEMP 97.3; O2SAT 89
[2023-02-03 06:23] LABS: BASOPHILS % (AUTO) 0.9 % (0.0-2.0); EOSINOPHILS # (AUTO) 0.1 K/uL (0.0-0.7); HEMATOCRIT 35 % (33-45); HEMOGLOBIN 11.1 g/dL (11.5-14.8); LYMPHOCYTES # (AUTO) 0.2 K/uL (0.8-4.8); LYMPHOCYTES % (AUTO) 6.4 % (20.0-44.0); MEAN CORPUSCULAR HEMOGLOBIN 33 PG (26.0-33.0); MEAN CORPUSCULAR HGB CONC 32 g/dl (31.0-36.0); MEAN CORPUSCULAR VOLUME 103 fL (82-100); MONOCYTES # (AUTO) 0.4 K/uL (0.1-1.30); MONOCYTES % (AUTO) 11.2 % (2.0-12.0); NEUTROPHILS # (AUTO) 3.1 K/uL (1.8-8.9); NEUTROPHILS % (AUTO) 79.5 % (43.0-81.0); PLATELET COUNT (AUTO) 128 K/uL (150-450); RED BLOOD CELL COUNT(AUTO) 3.36 MIL/uL (4.0-5.2); RED CELL DISTRIBUTION WIDTH 18.3 % (11.5-15.0); WHITE BLOOD COUNT (AUTO) 3.9 K/uL (4.3-11.0)
[2023-02-03] MEDS: BLOOD SUGAR DIAGNOSTIC 1 EACH STRIP VI SCH ×4 (07:04→22:38)
[2023-02-03] MEDS: INSULIN REGULAR, HUMAN 100 UNIT/ML 3 ML VIAL SQ PRN (07:04)
[2023-02-03 07:55] LABS: CALCIUM, SERUM 8.6 mg/dL (8.5-10.1); CREATININE 5.1 mg/dL (0.6-1.3); POTASSIUM 3.6 mmol/L (3.5-5.1)
[2023-02-03] MEDS: PROSOURCE / PROSTAT (PYXIS) 30 ML UDC PO SCH ×2 (08:15→17:03)
[2023-02-03] MEDS: *INSULIN REGULAR(HUMULIN R)HUM 100 UNIT/ML VIAL SQ PRN ×3 (11:32→22:38)
[2023-02-03 16:18] VITALS: BP 87/52; TEMP 97.8; O2SAT 100
[2023-02-03 21:02] VITALS: BP 84/55; TEMP 97.6; O2SAT 100
[2023-02-03] MEDS ORDERED: ALBUMIN 25% 100 ML IV ONE (21:48)
[2023-02-03] MEDS: ALBUMIN 25% 25 GM in PREMIX 1 EA IV PRN (21:51)
[2023-02-03 21:55] VITALS: BP 75/50
[2023-02-04 00:30] VITALS: BP 82/68
[2023-02-04 02:10] VITALS: BP 92/60
[2023-02-04 06:59] LABS: BASOPHILS % (AUTO) 0.9 % (0.0-2.0); EOSINOPHILS # (AUTO) 0.1 K/uL (0.0-0.7); HEMATOCRIT 34 % (33-45); HEMOGLOBIN 10.8 g/dL (11.5-14.8); LYMPHOCYTES # (AUTO) 0.2 K/uL (0.8-4.8); LYMPHOCYTES % (AUTO) 6.5 % (20.0-44.0); MEAN CORPUSCULAR HEMOGLOBIN 33 PG (26.0-33.0); MEAN CORPUSCULAR HGB CONC 31 g/dl (31.0-36.0); MEAN CORPUSCULAR VOLUME 105 fL (82-100); MONOCYTES # (AUTO) 0.4 K/uL (0.1-1.30); MONOCYTES % (AUTO) 11.3 % (2.0-12.0); NEUTROPHILS # (AUTO) 2.9 K/uL (1.8-8.9); NEUTROPHILS % (AUTO) 79.3 % (43.0-81.0); PLATELET COUNT (AUTO) 126 K/uL (150-450); RED BLOOD CELL COUNT(AUTO) 3.27 MIL/uL (4.0-5.2); RED CELL DISTRIBUTION WIDTH 18.3 % (11.5-15.0); WHITE BLOOD COUNT (AUTO) 3.7 K/uL (4.3-11.0)
[2023-02-04 07:14] LABS: CALCIUM, SERUM 8.5 mg/dL (8.5-10.1); CREATININE 5.6 mg/dL (0.6-1.3); POTASSIUM 4.1 mmol/L (3.5-5.1)
[2023-02-04] MEDS: INSULIN REGULAR, HUMAN 100 UNIT/ML 3 ML VIAL SQ PRN (07:28)
[2023-02-04] MEDS: BLOOD SUGAR DIAGNOSTIC 1 EACH STRIP VI SCH ×4 (07:28→22:00)
[2023-02-04 07:30] VITALS: BP 100/54; TEMP 97.5; O2SAT 100
[2023-02-04] MEDS: PROSOURCE / PROSTAT (PYXIS) 30 ML UDC PO SCH ×2 (09:31→16:24)
[2023-02-04 16:00] VITALS: BP 85/54; TEMP 97.9; O2SAT 100
[2023-02-04 19:00] VITALS: BP 87/46; TEMP 97.3; O2SAT 99
[2023-02-04] MEDS: ALBUMIN 25% 25 GM in PREMIX 1 EA IV PRN (20:44)
[2023-02-04] MEDS: *INSULIN REGULAR(HUMULIN R)HUM 100 UNIT/ML VIAL SQ PRN (23:06)
[2023-02-05] MEDS: BLOOD SUGAR DIAGNOSTIC 1 EACH STRIP VI SCH (07:35)
[2023-02-05] MEDS: INSULIN REGULAR, HUMAN 100 UNIT/ML 3 ML VIAL SQ PRN (07:37)
[2023-02-05 08:00] VITALS: BP 100/60; TEMP 97.6; O2SAT 98
[2023-02-05] MEDS: PROSOURCE / PROSTAT (PYXIS) 30 ML UDC PO SCH (08:41)
== END 2023-02-05 13:45 | disposition home or self-care (01) | DRG 291 ==
LOC: ER 10:01 → TELE 13:16 → MED 02-03 10:15
PROVIDERS: ADMIT Internal Medicine; ATTEND Internal Medicine
PROC: 5A1D70Z Performance of Urinary Filtration, Intermittent, Less than 6 Hours Per Day (ICD-10-PCS; principal; 2023-02-01)
PROC: 05H533Z Insertion of Infusion Device into Right Subclavian Vein, Percutaneous Approach (ICD-10-PCS; 2023-02-01)
PROC: B546ZZA Ultrasonography of Right Subclavian Vein, Guidance (ICD-10-PCS; 2023-02-01)
PROC: 0W9G3ZZ Drainage of Peritoneal Cavity, Percutaneous Approach (ICD-10-PCS; 2023-02-03)
DX: I13.2 Hypertensive heart and chronic kidney disease with heart failure and with stage 5 chronic kidney disease, or end stage renal disease (principal); G93.41 Metabolic encephalopathy; I50.23 Acute on chronic systolic (congestive) heart failure; N18.6 End stage renal disease; R18.8 Other ascites; D64.9 Anemia, unspecified; E78.5 Hyperlipidemia, unspecified; E87.5 Hyperkalemia; F31.9 Bipolar disorder, unspecified; J45.909 Unspecified asthma, uncomplicated; M10.9 Gout, unspecified; Z79.4 Long term (current) use of insulin; Z79.84 Long term (current) use of oral hypoglycemic drugs; Z83.3 Family history of diabetes mellitus; Z95.0 Presence of cardiac pacemaker; Z99.2 Dependence on renal dialysis; E11.22 Type 2 diabetes mellitus with diabetic chronic kidney disease; R53.1 Weakness; G90.8 Other disorders of autonomic nervous system; E83.9 Disorder of mineral metabolism, unspecified; L89.156 Pressure-induced deep tissue damage of sacral region
CPT/HCPCS: 36415; 49083; 71045-TC; 80048-TC; 80076-TC; 82962-TC; 83735-TC; 83880; 84100-TC; 84484-TC; 85025-TC; 85610-TC; 85730-TC; 87081-TC; A4216; A4223; G0378; J1815; J2405; J7030; J7040; J7050; P9047